=== PATIENT | female | born 1945 | race Caucasian/White ===

== ENCOUNTER 2018-02-03 15:38 | Inpatient (IN) | payer MEDICARE ==
[2018-02-03] MEDS ORDERED: Ondansetron ODT TAB* 4 MG PO ONE (16:52)
[2018-02-03 17:16] LABS: ABS Basophils 0 10^3/ul (0-0.2); ABS Eosinophils 0 10^3/ul (0-0.6); ABS Lymphocytes 0.8 10^3/ul (1.0-4.8); ABS Monocytes 0.7 10^3/ul (0-0.8); ABS Neutrophils 8.1 10^3/ul (1.5-7.7); ABS Nucleated RBC 0 10^3/ul; Eosinophil % 0.4 % (0-6); Hematocrit 31 % (35-47); Hemoglobin 9.6 g/dl (12.0-16.0); Lymphocyte % 8.6 % (25-47); Mean Corpuscular HGB Conc 31 g/dl (31-36); Mean Corpuscular Hemoglobin 25 pg (27-31); Mean Corpuscular Volume 81 fL (80-97); Mean Platelet Volume 10.1 um3 (7.4-10.4); Nucleated Red Blood Cells % 0; Platelet Count 159 10^3/ul (150-450); Red Blood Count 3.82 10^6/ul (4.00-5.40); Red Cell Distribution Width 21 % (10.5-15); White Blood Count 9.8 10^3/ul (3.5-10.8)
--- NOTE | 2018-02-03 17:32 | RAD ---
INDICATION: Short of breath none COMPARISON: None TECHNIQUE: AP seated and lateral views were obtained. FINDINGS: Bones/Soft Tissues: There are no acute bony findings. Cardiomediastinal: The cardiac silhouette and central pulmonary vessels are prominent. There is interstitial edema. There is a small amount of fluid in the minor fissures. Lungs: There are no infiltrates. Pleura: No significant pleural effusions. Other: None IMPRESSION: MILD TO MODERATE INTERSTITIAL CONGESTION.
[2018-02-03 17:34] LABS: EGFR Non-African American 71.9 (>60)
[2018-02-03] MEDS ORDERED: Nitroglycerin 2% OINT* 1 GM PAK TOPICAL ONE (17:47)
[2018-02-03] MEDS ORDERED: Nitroglycerin TAB 0.4 MG* 0.4 MG TAB SL ONE (17:47)
[2018-02-03] MEDS ORDERED: Furosemide IV* 10 MG/ML VIAL (40 MG) IV SLOW PU ONE (17:47)
--- NOTE | 2018-02-03 18:40 | ED ---
Shortness of Breath - HPI Summary HPI Summary: This is scribe Ranjit Medina documenting for attending Maykel Ventura M.D. Patient is a 72 y/o F w/ c/o SOB. Patient has liver CA and is being treated at [facility]. She states she went to an appointment there two weeks ago, stated she had been experiencing SOB recently, and was admitted for two days. She states an echocardiogram was done which revealed "abnormal findings". She states she also received two units of blood and CT to check for blood clots. Patient states she has experienced an exacerbation of SOB in the past two days. She notes she would experience SOB when doing activities like walking uphill but notes she is now experiencing SOB with any exertion to the point she " cannot do anything". She denies chest pain and cough. Patient is not on O2 at home. Vitals in room are pulse 70, O2 sat 96, and BP 151/62. Patient denies Hx of cardiac problems. Home medications and allergies are reviewed. I, Dr. Ventura, personally performed the services described in this documentation as scribed in my presence and it is both accurate and complete. - History of Current Complaint Chief Complaint: EDShortnessOfBreath Time Seen by Provider: 02/03/18 15:43 Hx Obtained From: Patient Onset/Duration: Lasting Days - exacerbation onset two days ago, Still Present Timing: Constant Current Severity: None - pain is denied on triage Aggrevating Factors: Movement Alleviating Factors: Nothing - Allergy/Home Medications Allergies/Adverse Reactions: Allergies Allergy/AdvReac Type Severity Reaction Status Date / Time No Known Allergies Allergy Verified 04/20/17 10:58 Home Medications: Home Medications Aspirin 81 mg CHEW TAB* [Aspirin Low Dose TAB*] 81 mg PO DAILY 02/03/18 [ History Confirmed 02/03/18] FLUoxetine CAP* [PROzac CAP*] 20 mg PO DAILY 02/03/18 [History Confirmed ] Gabapentin CAP(*) [Neurontin 300 CAP(*)] 300 mg PO BID 02/03/18 [History Confirmed 02/03/18] Glipizide/Metformin 5/500 2 tab PO DAILY 02/03/18 [History Confirmed 02/03/18] Ibuprofen TAB* [Advil TAB*] 600 mg PO DAILY PRN 02/03/18 [History Confirmed ] Insulin Detemir (NF) [Levemir (NF)] 25 unit SUBCUT DAILY 02/03/18 [History Confirmed 02/03/18] Levothyroxine TAB* [Synthroid TAB*] 200 mcg PO DAILY 02/03/18 [History Confirmed 02/03/18] Lisinopril 40 mg PO DAILY 02/03/18 [History Confirmed 02/03/18] Loperamide HCl [Imodium A-D] 2 mg PO DAILY PRN 02/03/18 [History Confirmed 02/03] Lovastatin(NF) [Mevacor(NF)] 40 mg PO DAILY 02/03/18 [History Confirmed 02/03/18 ] Metoprolol Tartrate TAB* [Lopressor TAB*] 25 mg PO BID 02/03/18 [History Confirmed 02/03/18] Ondansetron TAB* [Zofran 4 MG Tab*] 4 mg PO Q8HR PRN 02/03/18 [History Confirmed 02/03/18] PemBROLizumab* [Keytruda*] 25 mg IV Q21D 02/03/18 [History Confirmed 02/03/18] SORAfenib TOSYLATE [Nexavar] 400 mg PO BID 02/03/18 [History Confirmed 02/03/18] PMH/Surg Hx/FS Hx/Imm Hx Endocrine/Hematology History: Reports: Hx Diabetes - LANTUS AND GLIPIZIDE/ METFORMIN Cardiovascular History: Reports: Hx Hypertension - ON MEDICATION, Other Cardiovascular Problems/Disorders - HIGH CHOLESTEROL- ON MED Denies: Hx Pacemaker/ICD Respiratory History: Denies: Hx Asthma History: Denies: Hx Renal Disease Musculoskeletal History: Denies: Hx Osteoporosis Sensory History: Reports: Hx Cataracts, Hx Contacts or Glasses - GLASSES, Hx Hearing Aid Opthamlomology History: Reports: Hx Cataracts, Hx Contacts or Glasses - GLASSES Psychiatric History: Reports: Hx Depression - ON MED Denies: Hx Panic Disorder - Cancer History Hx Chemotherapy: No Hx Radiation Therapy: No - Surgical History Surgery Procedure, Year, and Place: GALL BLADDER REMOVAL- [facility] [place]. THYROIDECTOMY- [facility] [place]- 1999. [id number] Hx Anesthesia Reactions: No Infectious Disease History: No Infectious Disease History: Denies: Traveled Outside the [place] in Last 30 Days - Social History Alcohol Use: None Substance Use Type: Reports: None Smoking Status (MU): Former Smoker Type: Cigarettes Amount Used/How Often: 2 PPD X 35 YEARS Review of Systems Negative: Fever, Chills Negative: Erythema Negative: Sore Throat Negative: Chest Pain Positive: Shortness Of Breath. Negative: Cough Negative: Abdominal Pain, Vomiting, Nausea Negative: dysuria, hematuria Negative: Myalgia, Edema Negative: Rash Neurological: Other - NEGATIVE: dizziness All Other Systems Reviewed And Are Negative: Yes Physical Exam - Summary Physical Exam Summary: Constitutional: Well-developed, Well-nourished, Alert. (-) Distressed Skin: Warm, Dry HENT: Normocephalic; Atraumatic Eyes: Conjunctiva normal Neck: Musculoskeletal ROM normal neck. (-) JVD, (-) Stridor, (-) Tracheal deviation Cardio: Rhythm regular, rate normal, Heart sounds normal; Intact distal pulses; The pedal pulses are 2+ and symmetric. Radial pulses are 2+ and symmetric. (-) Murmur Pulmonary/Chest wall: Effort normal. (-) Respiratory distress, (-) Wheezes, (+) Rales in left lower lung field Abd: Soft, (-) epigastric tenderness, (-) Distension, (-) Guarding, (-) Rebound Musculoskeletal: (-) Edema Lymph: (-) Cervical adenopathy Neuro: Alert, Oriented x3 Psych: Mood and affect Normal Triage Information Reviewed: Yes Vital Signs On Initial Exam: Initial Vitals Temp Pulse Resp BP Pulse Ox 98.9 F 74 26 154/115 85 02/03/18 15:39 02/03/18 15:39 02/03/18 15:39 02/03/18 15:39 02/03/18 15:39 Vital Signs Reviewed: Yes Diagnostics - Vital Signs Vital Signs Temp Pulse Resp BP Pulse Ox 02/03/18 16:00 71 17 95 02/03/18 15:52 71 31 166/63 96 02/03/18 15:39 98.9 F 74 26 154/115 85 - Laboratory Lab Results: Lab Results 02/03/18 02/03/18 02/03/18 Range/Units 17:02 17:02 17:02 WBC 9.8 (3.5-10.8) 10^3/ul RBC 3.82 L (4.00-5.40) 10^6/ul Hgb 9.6 L (12.0-16.0) g/dl Hct 31 L (35-47) % MCV 81 (80-97) fL MCH 25 L (27-31) pg MCHC 31 (31-36) g/dl RDW 21 H (10.5-15) % Plt Count 159 (150-450) 10^3/ul MPV 10.1 (7.4-10.4) um3 Neut % (Auto) 83.1 H (38-83) % Lymph % (Auto) 8.6 L (25-47) % [place] % (Auto) 7.6 H (0-7) % Eos % (Auto) 0.4 (0-6) % Baso % (Auto) 0.3 (0-2) % Absolute Neuts (auto) 8.1 H (1.5-7.7) 10^3/ul Absolute Lymphs (auto) 0.8 L (1.0-4.8) 10^3/ul Absolute Monos (auto) 0.7 (0-0.8) 10^3/ul Absolute Eos (auto) 0 (0-0.6) 10^3/ul Absolute Basos (auto) 0 (0-0.2) 10^3/ul Absolute Nucleated RBC 0 10^3/ul Nucleated RBC % 0 Sodium 134 L (135-145) mmol/L Potassium 5.5 H (3.5-5.0) mmol/L Chloride 103 (101-111) mmol/L Carbon Dioxide 23 (22-32) mmol/L Anion Gap 8 (2-11) mmol/L BUN 15 (6-24) mg/dL Creatinine 0.79 (0.51-0.95) mg/dL Est GFR ( Amer) 87.1 (>60) Est GFR (Non-Af Amer) 71.9 (>60) BUN/Creatinine Ratio 19.0 (8-20) Glucose 155 H (70-100) mg/dL Lactic Acid 3.2 H* (0.5-2.0) mmol/L Calcium 9.2 (8.6-10.3) mg/dL Total Bilirubin 0.80 (0.2-1.0) mg/dL AST 33 (13-39) U/L ALT 14 (7-52) U/L Alkaline Phosphatase 82 (34-104) U/L Troponin I 0.04 H* (<0.04) ng/mL B-Natriuretic Peptide ( - 100) pg/mL Total Protein 7.8 (6.4-8.9) g/dL Albumin 3.6 (3.2-5.2) g/dL Globulin 4.2 H (2-4) g/dL Albumin/Globulin Ratio 0.9 L (1-3) / Range/Units 17:02 WBC (3.5-10.8) 10^3/ul RBC (4.00-5.40) 10^6/ul Hgb (12.0-16.0) g/dl Hct (35-47) % MCV (80-97) fL MCH (27-31) pg MCHC (31-36) g/dl RDW (10.5-15) % Plt Count (150-450) 10^3/ul MPV (7.4-10.4) um3 Neut % (Auto) (38-83) % Lymph % (Auto) (25-47) % [place] % (Auto) (0-7) % Eos % (Auto) (0-6) % Baso % (Auto) (0-2) % Absolute Neuts (auto) (1.5-7.7) 10^3/ul Absolute Lymphs (auto) (1.0-4.8) 10^3/ul Absolute Monos (auto) (0-0.8) 10^3/ul Absolute Eos (auto) (0-0.6) 10^3/ul Absolute Basos (auto) (0-0.2) 10^3/ul Absolute Nucleated RBC 10^3/ul Nucleated RBC % Sodium (135-145) mmol/L Potassium (3.5-5.0) mmol/L Chloride (101-111) mmol/L Carbon Dioxide (22-32) mmol/L Anion Gap (2-11) mmol/L BUN (6-24) mg/dL Creatinine (0.51-0.95) mg/dL Est GFR ( Amer) (>60) Est GFR (Non-Af Amer) (>60) BUN/Creatinine Ratio (8-20) Glucose (70-100) mg/dL Lactic Acid (0.5-2.0) mmol/L Calcium (8.6-10.3) mg/dL Total Bilirubin (0.2-1.0) mg/dL AST (13-39) U/L ALT (7-52) U/L Alkaline Phosphatase (34-104) U/L Troponin I (<0.04) ng/mL B-Natriuretic Peptide 993 H ( - 100) pg/mL Total Protein (6.4-8.9) g/dL Albumin (3.2-5.2) g/dL Globulin (2-4) g/dL Albumin/Globulin Ratio (1-3) Result Diagrams: 02/03/18 17:02 02/03/18 17:02 Lab Statement: Any lab studies that have been ordered have been reviewed, and results considered in the medical decision making process. - Radiology CXR Xray Interpretation: Positive (See Comments) Radiology Interpretation Completed By: Radiologist - Mild to moderate interstitial congestion. This report was reviewed by ED physician. - EKG 1635 Cardiac Rate: NL - rate of 70 BPM EKG Rhythm: Sinus Rhythm EKG Interpretation: nonspecific IVCD with LAD Re-Evaluation - Re-Evaluation First Eval Re-Evaluation Time: 17:51 Comment: Discussed decision to admit as well as results and labs. Patient is agreeable with admission to [facility] [place] Course/Dx - Course Assessment/Plan: Patient is a 72 y/o F w/ c/o SOB. Patient has liver CA and is being treated at [facility]. She states she went to an appointment there two weeks ago, stated she had been experiencing SOB recently, and was admitted for two days. She states an echocardiogram was done which revealed "abnormal findings". She states she also received two units of blood and CT to check for blood clots. Patient states she has experienced an exacerbation of SOB in the past two days. She notes she would experience SOB when doing activities like walking uphill but notes she is now experiencing SOB with any exertion to the point she "cannot do anything". She denies chest pain and cough. Patient is not on O2 at home. Physical exam showed rales in left lower lung field. During ED course, patient was given Zofran 4 mg PO ED ONCE, Nitroglycerin 2% oint 1 inch TOPICAL ED ONCE ONE, Nitroglycerin 0.4 mg SL .EVERY 5 MIN PRN ONE, Lasix 40 mg IV SLOW PU ED ONCE ONE. Labs showed .04 trop, lactic acid was 3.2, BNP 993. Sodium 134, potassium 5.5, RBC 3.82, Hgb 9.6, Hct 31, MCH 25, RDW 21, Neut % 83.1. CXR showed mild to moderate interstitial congestion. EKG impressions above. Patient's case was discussed with Dr. Alonso; she accepts patient for admission to [facility] [place]. Chou, PCP was also consulted; she asks hospitalist accept patient for admission. Discussed plan with patient, she is agreeable with further workup. Patient diagnosed with CHF exacerbation and hypoxia. - Diagnoses Provider Diagnoses: CHF exacerbation, Hypoxia - Physician Notifications Discussed Care of Patient With: Anum Alonso Time Discussed With Above Provider: 17:36 Instructed by Provider To: Other - Discussed patient's case with Dr. Alonso at 17: 36. Dr. Alonso accepts patient for admission to [facility] [place]. 18:09 -- Dr. Chou was consulted as she was patient's PCP. She asks that hospitalist accept patient for admission. - Critical Care Time Critical Care Time: 30-74 min - 35 minutes Discharge - Sign-Out/Discharge Documenting (check all that apply): Patient Departure - admit - Discharge Plan Condition: Good Disposition: ADMITTED TO [facility] Referrals: Sherley Chou MD [Primary Care Provider] -
[2018-02-03] MEDS ORDERED: Loperamide CAP* 2 MG PO PRN (20:11)
[2018-02-03] MEDS ORDERED: Ondansetron TAB* 4 MG PO PRN (20:11)
[2018-02-03] MEDS ORDERED: Furosemide IV* 10 MG/ML VIAL (40 MG) IV ONE (20:16)
[2018-02-03] MEDS ORDERED: Metoprolol Tartrate TAB* 25 MG PO SCH (21:00)
[2018-02-03] MEDS: Gemfibrozil TAB* 600 MG PO SCH (22:49)
[2018-02-03] MEDS: Gabapentin CAP(*) 300 MG PO SCH (22:49)
--- NOTE | 2018-02-03 23:12 | HP ---
CC: Dr. Chou; Dr. You* ADMISSION HISTORY AND PHYSICAL: DATE OF ADMISSION: 02/03/18 PRIMARY CARE PROVIDER: Dr. Sherley Chou. ADMITTING PHYSICIAN: Dr. Shala You* (dictated by Joce Catalan NP ). ATTENDING PHYSICIAN: Dr. Chou. CHIEF COMPLAINT: Shortness of breath x24 hours. HISTORY OF PRESENT ILLNESS: This is a very pleasant 72-year-old female patient , who has a history significant for hepatocellular carcinoma. She is currently under treatment at [facility] in [place]. The patient states she was recently admitted there from 01/19/18 to 01/21/18. At that time, the patient was presenting for her normally scheduled infusion treatment of Keytruda ; however, she was noted to be short of breath. The patient was admitted for a workup for her shortness of breath and was found to be in acute heart failure. The patient was diuresed and had an echocardiogram and some other diagnostics and was released by Cardiology on 01/21/18. The patient was home and in her usual state of health and gradually over the last 48 hours began to become short of breath again. The patient states she has an inability to lie flat. Her exertional dyspnea is preventing her from walking more than 20 feet without having to stop and sit down. Also, stating that she was not having any chest pains or pressure, but she does feel a general fatigue, anorexia, and general heaviness. 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 Also, of note, during her admission from 01/19/18 to 01/21/18, the patient was found to be anemic. Her hemoglobin was less than 7, she did receive a blood transfusion also at that time. Again, past medical history is as above. PAST SURGICAL HISTORY: Cholecystectomy in 1999, thyroidectomy in 1999, C- section in 1987. MEDICATIONS: At home, include: 1. Aspirin 81 mg daily. 2. Fluoxetine 20 mg daily. 3. Gabapentin 300 mg p.o. b.i.d. 4. Glipizide/metformin 5/500 two tabs p.o. daily. 5. Ibuprofen 600 mg as needed. 6. Levemir 25 units subcu daily. 7. Levothyroxine 200 mcg daily. 8. Lisinopril 40 mg daily. 9. Loperamide 2 mg p.o. daily. 10. Lovastatin 40 mg daily. 11. Metoprolol tartrate 25 mg 2 times a day. 12. Zofran 4 mg q.8 hours as needed. 13. Keytruda 25 mg IV q.3 weeks. 14. Nexavar 400 mg p.o. b.i.d. Please note, her Keytruda and Nexavar are currently on hold since her admission in December. ALLERGIES: She has no known drug allergies. SOCIAL HISTORY: The patient does not use alcohol. She was a former smoker, 2 packs per day x35 years. Denies any illicit drug use. Her daughter, who is at the bedside, is her healthcare proxy. CURRENT REVIEW OF SYSTEMS: A 10-point review of systems is negative except as noted in the HPI above. PHYSICAL EXAMINATION GENERAL: The patient is alert, pale, otherwise well appearing. VITAL SIGNS: Currently blood pressure 157/66, heart rate 72, respiratory rate 16, O2 saturation 98% on 2 L nasal cannula. HEENT: The patient is atraumatic, normocephalic. She has PERRLA with nonicteric sclerae. Oral mucosa is moist. NECK: Supple, nontender. No JVD noted. No carotid bruit auscultated. LUNGS: Clear at the apices bilaterally. She has bibasilar crackles. No rhonchi noted. No wheezing noted. CARDIOVASCULAR: S1, S2 present. No murmurs, gallops, or rubs noted. Rate and rhythm are regular. ABDOMEN: Soft, nontender, nondistended. Positive bowel sounds in all 4 quadrants. No organomegaly noted. : Deferred. MUSCULOSKELETAL: There is no clubbing and no cyanosis. She has no pedal edema. She has +2 distal pulses palpable. She has a steady gait. Full range of motion. NEUROLOGIC: She is grossly intact with no focalities. PSYCHIATRIC: She is cooperative and appropriate. DIAGNOSTIC STUDIES/LAB DATA: WBCs 9.8, RBCs 3.82, hemoglobin 9.6, hematocrit 31, platelets 159. Sodium 134, potassium 5.5, chloride 103, CO2 23, BUN 15, creatinine 0.79, GFR 71.9, glucose 155, lactic acid 3.2, calcium 9.2. Bilirubin 0.80, AST 33, ALT 14, alk phos 82. Troponin is 0.04. BNP is 993. Protein 7.8. Albumin 3.6, globulin 4.2. Radiology report: Chest x-ray dated today reveals [id number] interstitial congestion with no significant pleural effusions noted. IMPRESSION AND PLAN: This is a 72-year-old female with a complex medical history, currently under treatment for hepatocellular carcinoma, who apparently has had a bout with anemia and heart failure earlier this month, who now presents with acute shortness of breath and with just likely a second bout of congestive heart failure. 1. Acute heart failure, unspecified type. 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 The patient states she has no formal history of coronary artery disease and has not had angiography performed. I am trying to obtain her records from her admission at [place] and obtain copies of her echocardiogram at that time. We will repeat her echo in the morning and hopefully have a comparison to see if she has any additional dysfunction. In the meantime, she has gotten nitro paste, 2 L of oxygen by a nasal cannula. She has received 40 mg of Lasix IV. I have given her another 40 mg now and we will continue with 40 mg daily. Monitor for euvolemia. Strict I's and O's as well as daily weights. Recommend a low-salt diet. 2. For her diabetes mellitus, we will continue her on her oral meds with Accu- Cheks a.c. 2 times a day. At this point, her blood sugar appears controlled in the ED. If it begins to elevate, we can consider lispro sliding scale, but for now her last sugar was 155 and appears to be stable. We will continue her oral medications as well as her long-acting insulin at 25 units subcu daily. 3. For her hypertension, we will continue her on her beta hermes and also her lisinopril. 4. For her hypothyroidism, we will continue levothyroxine. 5. For her hyperlipidemia, we will continue her on Lopid 600 mg 2 times a day. She takes Zofran as needed, this will be continued as well as gabapentin 2 times daily. 6. For her hepatocellular carcinoma, her chemotherapy agents are currently on hold. When she was discharged from [place], she was instructed to follow up with Cardiology. The determinations will need to be made whether the patient will be able to continue with her treatment if her cardiac status is less than optimal to be able to withstand, continuing with biologic and chemotherapeutic agents. For now, the patient's BNP is elevated. We will repeat her BNP in the morning, repeat her lytes, repeat the troponin. She has a troponin of 0.04; however, I feel this may be some demand ischemia. She is not complaining of any chest pain or any anginal equivalents. She can have a low-sodium diet as stated earlier. 7. For DVT prophylaxis, we will place her on heparin subcu q.8 hours. She can ambulate as tolerated. 8. Disposition. Admit to inpatient under Dr. Chou's service. We have consulted Cardiology. I discussed this case with Dr. Chata Lovett; somebody from cardiology group will see the patient in the morning and evaluate the rest of the patient's workup. We appreciate any recommendations from Cardiology at that time. The rest of the patient's course will be determined by further diagnostics, laboratories, and other input from other providers as warranted during this admission. We will continue to monitor the patient closely. Of note, I discussed this plan of care with Dr. Shala You, who is the admitting physician for today and she is in agreement with the plan. JOCE CATALAN NP [id number]/[facility] #: [id number] TASH
[2018-02-04] MEDS: Levothyroxine TAB* 100 MCG TAB PO SCH (06:10)
[2018-02-04 06:36] LABS: ABS Basophils 0.1 10^3/ul (0-0.2); ABS Eosinophils 0.1 10^3/ul (0-0.6); ABS Lymphocytes 1.5 10^3/ul (1.0-4.8); ABS Nucleated RBC 0 10^3/ul; Eosinophil % 1.3 % (0-6); Hematocrit 28 % (35-47); Hemoglobin 8.6 g/dl (12.0-16.0); Lymphocyte % 22.9 % (25-47); Mean Corpuscular HGB Conc 31 g/dl (31-36); Mean Corpuscular Hemoglobin 25 pg (27-31); Mean Corpuscular Volume 79 fL (80-97); Mean Platelet Volume 9.6 um3 (7.4-10.4); Nucleated Red Blood Cells % 0.1; Platelet Count 144 10^3/ul (150-450); Red Blood Count 3.47 10^6/ul (4.00-5.40); Red Cell Distribution Width 21 % (10.5-15); White Blood Count 6.6 10^3/ul (3.5-10.8)
[2018-02-04 06:55] LABS: EGFR Non-African American 57.5 (>60)
[2018-02-04] MEDS ORDERED: Nitroglycerin 2% OINT* 1 GM PAK TOPICAL SCH (08:00)
[2018-02-04] MEDS: Atorvastatin* 10 MG TAB PO SCH (08:03)
[2018-02-04] MEDS: metFORMIN* 500 MG TAB PO SCH ×2 (08:04→17:50)
[2018-02-04] MEDS: Lisinopril TAB* 10 MG PO SCH (08:04)
[2018-02-04] MEDS: FLUoxetine CAP* 20 MG PO SCH (08:05)
[2018-02-04] MEDS: Aspirin 81 mg CHEW TAB* 81 MG TAB.CHEW PO SCH (08:05)
[2018-02-04] MEDS: Gemfibrozil TAB* 600 MG PO SCH ×2 (08:06→21:58)
[2018-02-04] MEDS: glipiZIDE TAB* 5 MG PO SCH ×2 (08:06→17:50)
[2018-02-04] MEDS: Gabapentin CAP(*) 300 MG PO SCH ×2 (08:06→21:58)
[2018-02-04] MEDS: Furosemide IV* 10 MG/ML VIAL (40 MG) IV SLOW PU SCH (08:09)
[2018-02-04] MEDS: Insulin GLARGINE(*) 1 UNITS UNIT SUBCUT SCH (08:09)
[2018-02-04] MEDS: Metoprolol Tartrate TAB* 25 MG PO SCH ×2 (08:10→21:58)
[2018-02-04] MEDS ORDERED: Perflutren Lipid Microsphere* 3 ML VIAL ONE (08:37)
[2018-02-04] MEDS ORDERED: GLIPIZIDE PO SCH (09:00)
[2018-02-04] MEDS ORDERED: METFORMIN PO SCH (09:00)
--- NOTE | 2018-02-04 09:48 | ECHO ---
Patient: LUCERO CALDWELL [facility] Rec#: [id number] : 1945 Date: 02/04/2018 Age: 72y Height: 165.1 cm / 65.0 in Weight: 97.52 kg / 214.9 lbs Sex: F BSA: 2.04 Admit Date#: 02/03/2018 Referring: Alicia Dickson Reading: Demian Ballard DO Disc Pad Plate Filler: TERI Disc Pad Plate Filler: Karli Larios RDCS CC: Sherley Chou MD CC: Gideon Andre MD Transthoracic Echocardiogram Findings History: Hepatocellular cancer with chemotherapy,DM,HLD,HTN,former smoker. Technical Comments: The study is technically limited due to the patient's smoking history. Completed at 0910. Definity used to enhance images. Left Ventricle: The left ventricular chamber size is normal. Septal wall hypertrophy is observed. The estimated ejection fraction is 55-60%. There is abnormal septal motion consistent with conduction system disease. All myocardial segments thicken appropriately. The assessment of diastolic function is non-diagnostic. Left Atrium: The left atrium is mild to moderately dilated. Right Ventricle: The right ventricular chamber size and systolic function are within normal limits. Right Atrium: The right atrium is mildly dilated. Aortic Valve: The aortic valve is trileaflet. The aortic valve leaflets are mildly thickened. Mild aortic leaflet calcification is visualized. Systolic excursion of the aortic valve is normal. There is mild aortic regurgitation. There is no evidence of aortic stenosis. Mitral Valve: Severe mitral annular calcification present. The mitral valve leaflets are moderately thickened. There is mild mitral regurgitation. There is mild mitral stenosis. The mean gradient across the mitral valve is 3.87 mmHg. Tricuspid Valve: The tricuspid valve leaflets are normal. There is mild tricuspid regurgitation. There is evidence of mild pulmonary hypertension. There is no tricuspid stenosis. Pulmonic Valve: The pulmonic valve appears normal. There is a trace pulmonic regurgitation. There is no pulmonic stenosis. Pericardium: There is no significant pericardial effusion. Aorta: There is no dilatation of the ascending aorta. There is no dilatation of the aortic arch. There is no dilation of the aortic root. Pulmonary Artery: The main pulmonary artery is not well visualized. Venous: The venous system is not well visualized. Contrast: Definity was used to optimize study. A total of 4 ml used. Intravenous contrast was used to enhance endocardial border definition. Conclusions The left ventricular chamber size is normal. Moderate septal wall hypertrophy is observed. The estimated ejection fraction is 55-60%. The left atrium is mild to moderately dilated. The right ventricular chamber size and systolic function are within normal limits. Severe mitral annular calcification present. No more than mild valvular disease noted There is evidence of mild pulmonary hypertension. Definity was used to optimize study. None prior for comparison at time of interpretation Measurements Name Value Normal Range RVIDd (AP) 2D 3.4 cm (0.9 - 2.6) RVDdMajor (2D) 3.7 cm (2.2 - 4.4) RAd ISD 4CH 5.6 cm (3.4 - 4.9) RA (A4C)W 3.6 cm (2.9 - 4.6) IVSd (2D) 1.6 cm (0.6 - 1) LVPWd (2D) 1.1 cm (0.6 - 1) LVIDd (2D) 4.2 cm (3.6 - 5.4) LVIDs (2D) 2.4 cm - LV FS (2D) 42 % (25 - 45) Aortic Annulus 2.2 cm (1.4 - 2.6) Ao root diameter (2D) 3.2 cm (2.1 - 3.5) Ascending Ao 3.2 cm (2.1 - 3.4) Aortic arch 2.8 cm (1.8 - 3.4) Descending Ao 0.6 cm - LA dimension (AP) 2D 4.4 cm (2.3 - 3.8) LAd ISD 4CH 5.9 cm (2.9 - 5.3) LA ISD 4CH W 4.4 cm (2.5 - 4.5) Name Value Normal Range LA ESV SP 4CH (A/L) 68 ml - LA ESV SP 2CH (A/L) 108 ml - LA ESV BP (A/L) 86 ml - LA ESV BP (A/L) index 42.27 ml/m2 - LA ESV SP 4CH (MOD) 63 ml - LA ESV SP 2CH (MOD) 102 ml - Name Value Normal Range MV E-wave Vmax 1.7 m/sec - MV deceleration time 395 msec - MV A-wave Vmax 1.4 m/sec - MV E:A ratio 1.22 ratio - LV septal e' Vmax 0.04 m/sec - LV lateral e' Vmax 0.05 m/sec - LV E:e' septal ratio 42.5 ratio - LV E:e' lateral ratio 34 ratio - Name Value Normal Range AV Vmax 1.8 m/sec - AV VTI 39.6 cm - AV peak gradient 12.2 mmHg - AV mean gradient 5.35 mmHg - LVOT diameter 1.9 cm - LVOT Vmax 1.3 m/sec - LVOT VTI 35.2 cm - LVOT peak gradient 6.39 mmHg - LVOT mean gradient 3.39 mmHg - AR PHT 349 msec - AR peak gradient 41.26 mmHg - Name Value Normal Range MV Vmax 1.7 m/sec - MV VTI 64.1 cm - MV peak gradient 11.86 mmHg - MV mean gradient 3.87 mmHg - MV PHT 103 msec - MR Vmax 4.6 m/sec - MR VTI 147 cm - MVA (PHT) 2.1 cm2 - MVA (continuity VTI) 0.7 cm2 - Name Value Normal Range TR Vmax 2.9 m/sec - TR peak gradient 34 mmHg - RAP 8 mmHg - RVSP 42 mmHg - Name Value Normal Range PV Vmax 1 m/sec - PV peak gradient 3.8 mmHg -
--- NOTE | 2018-02-04 11:46 | CONSULT ---
Subjective Date of Service: 02/04/18 Interval History: Admission and Consult Date: 02/03/18 Provider: Dr. Sherley Chou DATE OF ADMISSION: 02/03/18 Consult Date 02/04/2018 CHIEF COMPLAINT: Shortness of breath Reason for consult: CHF. HISTORY OF PRESENT ILLNESS: Sherley Gómez is a 72-year-old woman with a history of hepatocellular carcinoma on clinical trial protocol at [facility] in [place]. She was admitted there at the end of December with dyspnea and chest discomfort. A CT PE study was negative. There was concern for some apical wall motion abnormalities and the question of whether she had CAD because of a detectable troponin and abnormal ekg. She was transfused pRBC. She was not given lasix. She is now admitted with dyspnea and orthopnea. She was found with CHF, she is again anemic. She had a detectable troponin but without rise and fall to suggest ACS. She has normal thickening of all myocardial segments and hypertrophy more prominent of the septal wall best appreciated on definity imaging. She was given IV diuretics, had a good response and has markedly improved. She is no longer dyspneic. 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 MEDICATIONS: At home, include: 1. Aspirin 81 mg daily. 2. Fluoxetine 20 mg daily. 3. Gabapentin 300 mg p.o. b.i.d. 4. Glipizide/metformin 5/500 two tabs p.o. daily. 5. Ibuprofen 600 mg as needed. 6. Levemir 25 units subcu daily. 7. Levothyroxine 200 mcg daily. 8. Lisinopril 40 mg daily. 9. Loperamide 2 mg p.o. daily. 10. Lovastatin 40 mg daily. 11. Metoprolol tartrate 25 mg 2 times a day. 12. Zofran 4 mg q.8 hours as needed. 13. Keytruda 25 mg IV q.3 weeks. 14. Nexavar 400 mg p.o. b.i.d. Please note, her Keytruda and Nexavar are currently on hold since her admission in December. ALLERGIES: She has no known drug allergies. SOCIAL HISTORY: The patient does not use alcohol. She was a former smoker, 2 packs per day x35 years. Denies any illicit drug use. Her daughter, who is at the bedside, is her healthcare proxy. Medications Active Medications: Aspirin (Aspirin 81 Mg Chew Tab*) 81 mg PO DAILY [facility] Last Admin: 02/04/18 08:05 Dose: 81 mg Atorvastatin Calcium (Lipitor*) 40 mg PO DAILY [facility] Last Admin: 02/04/18 08:03 Dose: 40 mg Fluoxetine HCl (Prozac Cap*) 20 mg PO DAILY [facility] Last Admin: 02/04/18 08:05 Dose: 20 mg Furosemide (Lasix Iv*) 40 mg IV SLOW PU DAILY [facility] Last Admin: 02/04/18 08:09 Dose: 40 mg Gabapentin (Neurontin Cap(*)) 300 mg PO BID [facility] Last Admin: 02/04/18 08:06 Dose: 300 mg Gemfibrozil (Lopid Tab*) 600 mg PO BID [facility] Last Admin: 02/04/18 08:06 Dose: 600 mg Glipizide (Glucotrol Tab*) 5 mg PO BID WITH MEALS [facility] Last Admin: 02/04/18 08:06 Dose: 5 mg Insulin Glargine (Lantus(*)) 25 units SUBCUT DAILY [facility] Last Admin: 02/04/18 08:09 Dose: 25 units Levothyroxine Sodium (Synthroid Tab*) 200 mcg PO DAILY@0600 [facility] Last Admin: 02/04/18 06:10 Dose: 200 mcg Lisinopril (Prinivil Tab*) 40 mg PO DAILY [facility] Last Admin: 02/04/18 08:04 Dose: 40 mg Loperamide HCl (Imodium Cap*) 2 mg PO DAILY PRN PRN Reason: DIARRHEA Last Admin: 02/04/18 08:05 Dose: 2 mg Metformin HCl (Glucophage*) 500 mg PO BID WITH MEALS [facility] Last Admin: 02/04/18 08:04 Dose: 500 mg Metoprolol Tartrate (Lopressor Tab*) 12.5 mg PO BID [facility] Last Admin: 02/04/18 08:10 Dose: 12.5 mg Nitroglycerin (Nitroglycerin 2% Oint*) 0.5 inch TOPICAL 0800,1400 [facility]; Protocol Last Admin: 02/04/18 08:08 Dose: 0.5 inch Ondansetron HCl (Zofran Tab*) 4 mg PO Q8HR PRN PRN Reason: NAUSEA/VOMITING Home Medications: Review of Systems - Measurements Intake and Output: Intake and Output Last 24 Hours 02/02/18 02/03/18 02/04/18 02/05/18 06:59 06:59 06:59 06:59 Intake Total 8 Output Total 1825 Balance -1817 Weight 213 lb 8 oz Intake: IV Fluids 4 IVPB 4 Oral 0 Output: Urine 1825 Other: # Bowel Movements 0 - Review of Systems Constitutional Symptoms: Positive: Weakness, Fatigue, Other Negative: Weight Gain, Weight Loss, Fever Dermatology: Negative: Rash, Skin Lesions HEENT: Negative: Change in Hearing, Vertigo Eyes: Negative: Change in Vision, Double Vision Thyroid: Negative: Cold Intolerance, Heat Intolerance, Weight Loss, Weight Gain, Change in Skin/Hair, Change in Menstration Pulmonary: Positive: Respiratory Distress, Shortness of Breath, Exercise Intolerance Negative: Hemoptysis, Wheezing, COPD, Asthma, Home Oxygen Cardiology: Positive: Shortness of Breath, Orthopnea Negative: Palpitations, Swelling of Ankles, Peripheral Vascular Dis, Edema, Syncope, Claudication Gastroenterology: Negative: Nausea, Vomiting, Anorexia Genital - Urinary: Negative: Dysuria, Hematuria Musculoskeletal: Negative: Joint Pain, Joint Stiffness Endocrinology: Positive: Obesity, Diabetes Negative: Polydipsia, Polyuria Hematologic/Lymphatic: Positive: Anemia, Hx Leukemia, Hx Lymphoma, Use of Antiplatelet Drugs Negative: Use of Anticoagulant Neurology: Negative: Headaches, Migraines, Change in Speech, Change in Sphincter Function, Change in Walking Psychiatry: Negative: Unusual Anxiety, Suicidal Ideation Allergic/Immunologic: Negative: Hx Anaphylaxis, Hx Angioedema, Hx HIV, Immunocompromise Review of Systems Statement: All other review of systems negative, unless stated above. Objective Vital Signs: Temp Pulse Resp BP Pulse Ox 97.7 F 71 16 120/44 93 02/04/18 07:11 02/04/18 07:11 02/04/18 11:01 02/04/18 07:55 02/04/18 07:11 Oxygen Devices in Use Now: None Appearance: nad, chronically ill appearing Ears/Nose/Mouth/Throat: Clear Oropharnyx Neck: NL Appearance and Movements; NL JVP, Trachea Midline Respiratory: Symmetrical Chest Expansion and Respiratory Effort, Clear to Auscultation Cardiovascular: RRR, No Edema, - - no significant murmur, uncertain jvp Abdominal: NL Sounds; No Tenderness; No Distention Extremities: No Edema, No Clubbing, Cyanosis Neurological: Alert and Oriented x 3 Laboratory Results: 02/04/18 06:22 02/04/18 06:25 Total Bilirubin 0.60 mg/dL (0.2-1.0) 02/04/18 06:25 AST 28 U/L (13-39) 02/04/18 06:25 ALT 11 U/L (7-52) 02/04/18 06:25 Alkaline Phosphatase 75 U/L (34-104) 02/04/18 06:25 B-Natriuretic Peptide 855 pg/mL (-100) H 02/04/18 06:25 Total Protein 6.9 g/dL (6.4-8.9) 02/04/18 06:25 Albumin 3.2 g/dL (3.2-5.2) 02/04/18 06:25 Globulin 3.7 g/dL (2-4) 02/04/18 06:25 Albumin/Globulin Ratio 0.9 (1-3) L 02/04/18 06:25 TSH 0.86 mcIU/mL (0.34-5.60) 02/03/18 17:02 02/03/18 02/03/18 17:02 20:48 Troponin I 0.04 H* 0.05 H* Diagnostic Imaging: cxr 02/03/2018: Mild-moderate interstitial edema echo 02/04/2018: moderate septal LVH, LVEF 55-60%, mild-mod LA dilation, severe MAC, mild pHTN, no more than mild valvular disease noted EKG Data: ekg 01/24/2018: NSR, incomplete LBBB Assessment/Plan Patient admitted with acute on chronic diastolic heart failure, likely multifactorial, has responded to IV lasix. No evidence of an acute type 1 plaque disruption [place] although there is concern for underlying fixed obstructive epicardial atherosclerotic CAD - Continue aspirin, statin, beta-hermes and AceI - Continue loop diuretic, would change to low dose at discharge - Consider pharmacologic DVT prophylaxis while inpatient - Patient may benefit from a higher hemoglobin but I would not necessarily transfuse at this point - Ensure patient can ambulate without significant symptoms prior to discharge - I do not think that patient would benefit from revascularization in addition to medical therapy at this time. - If she otherwise remains stable/improves, she could be discharged 02/05 from a cardiac standpoint - She should follow up with her corn cutter and oncologist at [facility] to determine if she is able to restart chemotherapy. Thank you for allowing me to participate in the cardiovascular care of this patient. Please do not hesitate to contact me with questions or concerns
[2018-02-05] MEDS: Levothyroxine TAB* 100 MCG TAB PO SCH (05:37)
[2018-02-05 05:59] LABS: ABS Basophils 0 10^3/ul (0-0.2); ABS Eosinophils 0.1 10^3/ul (0-0.6); ABS Lymphocytes 1.2 10^3/ul (1.0-4.8); ABS Neutrophils 3.4 10^3/ul (1.5-7.7); ABS Nucleated RBC 0 10^3/ul; Eosinophil % 1.7 % (0-6); Hematocrit 26 % (35-47); Hemoglobin 8.6 g/dl (12.0-16.0); Lymphocyte % 21.6 % (25-47); Mean Corpuscular HGB Conc 33 g/dl (31-36); Mean Corpuscular Hemoglobin 26 pg (27-31); Mean Corpuscular Volume 80 fL (80-97); Mean Platelet Volume 10.2 um3 (7.4-10.4); Nucleated Red Blood Cells % 0.1; Platelet Count 127 10^3/ul (150-450); Red Blood Count 3.32 10^6/ul (4.00-5.40); Red Cell Distribution Width 21 % (10.5-15); White Blood Count 5.8 10^3/ul (3.5-10.8)
--- NOTE | 2018-02-05 08:54 | PN ---
Subjective Date of Service: 02/05/18 Interval History: f/u CHF Feels very well this AM Slept well Ambulating without symptoms No CP or dyspnea tele: SR Medications Active Medications: Aspirin (Aspirin 81 Mg Chew Tab*) 81 mg PO DAILY [facility] Last Admin: 02/04/18 08:05 Dose: 81 mg Atorvastatin Calcium (Lipitor*) 40 mg PO DAILY [facility] Last Admin: 02/04/18 08:03 Dose: 40 mg Fluoxetine HCl (Prozac Cap*) 20 mg PO DAILY [facility] Last Admin: 02/04/18 08:05 Dose: 20 mg Furosemide (Lasix Iv*) 40 mg IV SLOW PU DAILY [facility] Last Admin: 02/04/18 08:09 Dose: 40 mg Gabapentin (Neurontin Cap(*)) 300 mg PO BID [facility] Last Admin: 02/04/18 21:58 Dose: 300 mg Gemfibrozil (Lopid Tab*) 600 mg PO BID [facility] Last Admin: 02/04/18 21:58 Dose: 600 mg Glipizide (Glucotrol Tab*) 5 mg PO BID WITH MEALS [facility] Last Admin: 02/04/18 17:50 Dose: 5 mg Insulin Glargine (Lantus(*)) 25 units SUBCUT DAILY [facility] Last Admin: 02/04/18 08:09 Dose: 25 units Levothyroxine Sodium (Synthroid Tab*) 200 mcg PO DAILY@0600 [facility] Last Admin: 02/05/18 05:37 Dose: 200 mcg Lisinopril (Prinivil Tab*) 40 mg PO DAILY [facility] Last Admin: 02/04/18 08:04 Dose: 40 mg Loperamide HCl (Imodium Cap*) 2 mg PO DAILY PRN PRN Reason: DIARRHEA Last Admin: 02/04/18 08:05 Dose: 2 mg Metformin HCl (Glucophage*) 500 mg PO BID WITH MEALS [facility] Last Admin: 02/04/18 17:50 Dose: 500 mg Metoprolol Tartrate (Lopressor Tab*) 12.5 mg PO BID [facility] Last Admin: 02/04/18 21:58 Dose: 12.5 mg Ondansetron HCl (Zofran Tab*) 4 mg PO Q8HR PRN PRN Reason: NAUSEA/VOMITING Objective Vital Signs: Temp Pulse Resp BP Pulse Ox 98.5 F 61 18 120/42 95 02/05/18 03:26 02/05/18 03:26 02/05/18 03:26 02/05/18 03:26 02/05/18 03:26 Oxygen Devices in Use Now: None Appearance: nad, chronically ill appearing Ears/Nose/Mouth/Throat: Clear Oropharnyx Neck: NL Appearance and Movements; NL JVP, Trachea Midline Respiratory: Symmetrical Chest Expansion and Respiratory Effort, Clear to Auscultation Cardiovascular: RRR, No Edema, - - no significant murmur, uncertain jvp Abdominal: NL Sounds; No Tenderness; No Distention Extremities: No Edema, No Clubbing, Cyanosis Neurological: Alert and Oriented x 3 Laboratory Results: 02/05/18 05:27 02/05/18 05:27 Total Bilirubin 0.50 mg/dL (0.2-1.0) 02/05/18 05:27 AST 27 U/L (13-39) 02/05/18 05:27 ALT 10 U/L (7-52) 02/05/18 05:27 Alkaline Phosphatase 68 U/L (34-104) 02/05/18 05:27 B-Natriuretic Peptide 446 pg/mL (-100) H 02/05/18 05:27 Total Protein 6.5 g/dL (6.4-8.9) 02/05/18 05:27 Albumin 2.9 g/dL (3.2-5.2) L 02/05/18 05:27 Globulin 3.6 g/dL (2-4) 02/05/18 05:27 Albumin/Globulin Ratio 0.8 (1-3) L 02/05/18 05:27 TSH 0.71 mcIU/mL (0.34-5.60) 02/05/18 05:27 02/03/18 02/03/18 17:02 20:48 Troponin I 0.04 H* 0.05 H* Diagnostic Imaging: cxr 02/03/2018: Mild-moderate interstitial edema echo 02/04/2018: moderate septal LVH, LVEF 55-60%, mild-mod LA dilation, severe MAC, mild pHTN, no more than mild valvular disease noted EKG Data: ekg 01/24/2018: NSR, incomplete LBBB Assessment/Plan Patient admitted with acute on chronic diastolic heart failure, likely multifactorial in the setting of recent pRBC transusions has responded to IV lasix. Ruled out for ACS. - Continue aspirin, statin, beta-hermes and AceI - Continue loop diuretic, would change to low dose at discharge - Patient has f/u this Thursday with the chief of cardio-oncology at [facility] , Dr. Patterson to see if ok to resume chemotherapy - Can be discharged today from a cardiac standpoint Thank you for allowing me to participate in the cardiovascular care of this patient. Please do not hesitate to contact me with questions or concerns
[2018-02-05 09:04] VITALS: BP 104/40
[2018-02-05] MEDS: Gabapentin CAP(*) 300 MG PO SCH (09:05)
[2018-02-05] MEDS: metFORMIN* 500 MG TAB PO SCH (09:06)
[2018-02-05] MEDS: Aspirin 81 mg CHEW TAB* 81 MG TAB.CHEW PO SCH (09:06)
[2018-02-05] MEDS: glipiZIDE TAB* 5 MG PO SCH (09:06)
[2018-02-05] MEDS: FLUoxetine CAP* 20 MG PO SCH (09:06)
[2018-02-05] MEDS: Atorvastatin* 10 MG TAB PO SCH (09:08)
[2018-02-05] MEDS: Lisinopril TAB* 10 MG PO SCH (09:08)
[2018-02-05] MEDS: Furosemide IV* 10 MG/ML VIAL (40 MG) IV SLOW PU SCH (09:09)
[2018-02-05] MEDS: Gemfibrozil TAB* 600 MG PO SCH (09:09)
[2018-02-05] MEDS: Insulin GLARGINE(*) 1 UNITS UNIT SUBCUT SCH (09:10)
[2018-02-05] MEDS: Metoprolol Tartrate TAB* 25 MG PO SCH (09:10)
--- NOTE | 2018-02-08 01:41 | DS ---
CC: Dr. Huffman; Dr. Patterson at [facility]. * DISCHARGE SUMMARY: DATE OF ADMISSION: 02/03/18 DATE OF DISCHARGE: 02/05/18 DISCHARGE DIAGNOSES: 1. Acute diastolic heart failure. 2. Locally advanced hepatocellular carcinoma. 3. Cirrhosis. 4. Anemia. 5. Type 2 diabetes mellitus. 6. Hypertension. 7. Hypothyroidism. 8. Depression. 9. Status post gallbladder resection. 10. History of portal vein thrombosis. HISTORY: Daniella Gómez is a 73-year-old woman admitted with shortness of breath due to diastolic heart failure. Please see the dictated admission note for details of the present illness, past medical history, family history, social and personal history, review of systems, and physical examination. DIAGNOSTIC STUDIES/LAB DATA: CBC on admission, WBC 9.8, H and H 9.6/31, MCV 81 , PLT 159,000. White count came down to 5.8, H and H at the time of discharge was 8.6/26, platelet count 127. Chemistries on admission, sodium 134, potassium 5.5, chloride 103, CO2 of 23, BUN and creatinine 15/0.79, glucose 155. Rest of the comprehensive metabolic panel was within normal limits, except for globulin elevated at 4.2. Troponins were 0.04, 0.05. TSH was 0.86. BNP started at 993, came down to 855 on 02/04/18, it was 446 on 02/05/18. Lactic acid was 3.2 on 02/03/18, was 2.7 on repeated. Imaging: Chest x-ray on 02/03/18 showed mild to moderate interstitial congestion. Cardiology reports EKG on 02/03/18 showed sinus rhythm, nonspecific interventricular conduction delay with LAD, abnormal ST-T wave changes. Transthoracic echocardiogram on 02/03/18 showed mild to moderate left atrial dilatation, estimated ejection fraction of 55% to 60%. There was abnormal septal motion consistent with conduction system disease. There was mild aortic valve leaflet thickening with mild aortic regurgitation. No evidence of aortic stenosis. There was severe mitral annular calcification with moderate thickening of the mitral valve leaflets and mild mitral regurgitation and mild mitral stenosis. The gradient across the mitral valve was 3.87 mmHg. Cardiology consultation, Dr. Demian Ballard, 02/04/18, Dr. Ballard felt that the patient had diastolic heart failure. He noted that recent CTA of the chest at [place] had been negative for pulmonary emboli. She had been anemic, then was transfused and not given Lasix. It was not felt that she had an acute coronary syndrome. She responded well to IV diuretics. He noted that her chemotherapy was on hold. He gave her the diagnosis of acute on chronic diastolic heart failure, likely multifactorial responding to IV Lasix. He felt she had no evidence of an acute type 1 plaque disruption [place], although there is concern for underlying fixed obstructive epicardial atherosclerosis. He recommended continuing aspirin, statin, beta-hermes, and Thomas inhibitor. He recommended continuing loop diuretic, recommended changing to low-dose at discharge. He did not recommend transfusion at this point. He did not think she would benefit from revascularization in addition to medical therapy at this time. He felt she could be discharged on 02/05/18 and to follow up with the well control instructor and oncologist at [facility] to determine if she is able to restart chemotherapy. He saw her in followup on 02/05/18 prior to her discharge. He discussed with her following up with the well control instructor at [facility] [facility]. I discussed with him whether she should have a stress test and he felt that if it needed to be done, it should be done at [place]. HOSPITAL COURSE: The patient was initially seen in the emergency room where she was treated with IV furosemide, nitroglycerin sublingual. She improved. She was admitted and placed on telemetry. She continued to receive daily furosemide IV 40 mg. She continued to diurese and her breathing improved. She was able to walk around the [place] without shortness of breath prior to discharge. Her blood sugars were monitored and remained reasonably well controlled. Her other medications were continued. She had no chest pain. She had no significant arrhythmias on monitoring. At the time of discharge, her vital signs were as follows: Blood pressure 104/ 40, pulse 59, respirations 20, temperature 98.1, O2 sat 92% on room air. Her weight went from 217 pounds 11.2 ounces down to 212 pounds 12.8 ounces, lost approximately 5 pounds with diuresis. She had no edema. Her lungs were clear. Her heart was regular. DIET: Low salt. She should continue her consistent carbohydrate diet. ACTIVITIES: As tolerated. At the time of discharge, her medications are to be as follows: 1. Furosemide 20 mg daily. 2. Aspirin 81 mg daily. 3. Fluoxetine 20 mg daily. 4. Gabapentin 300 mg 2 a day. 5. Gemfibrozil 600 mg 2 a day. 6. Glipizide metformin 5/500 two pills twice a day. 7. Levemir 25 units daily. 8. Lisinopril 20 mg 2 pills once a day. 9. Lovastatin 20 mg 2 pills once a day. 10. Metoprolol 25 mg one-half tablet twice a day. 11. Prilosec 20 mg once a day. 12. Vitamin D3 of 2000 units once a day. 13. Levothyroxine 200 mcg once a day. 14. Loperamide 2 mg 2 each morning. 15. Nitroglycerin 1/150 as needed for chest pain. 16. Prochlorperazine 10 mg every 6 hours as needed for nausea. FOLLOWUP: She is to follow up with Dr. Patterson and Dr. Huffman next week at [place] as planned. She should follow up with me in 5 to 7 days and with her physicians at [facility] on Thursday02/09/18. [id number]/[facility] #: [id number] MTDD
== END 2018-02-05 11:30 | disposition home or self-care (01) | DRG 292 ==
LOC: ED 15:38 → MEDTELE 20:56
PROVIDERS: ADMIT Hospitalist; ATTEND Internal Medicine Geriatric Medicine
DX: I11.0 Hypertensive heart disease with heart failure (principal); C22.0 Liver cell carcinoma; I50.33 Acute on chronic diastolic (congestive) heart failure; F32.9 Major depressive disorder, single episode, unspecified; E89.0 Postprocedural hypothyroidism; E11.36 Type 2 diabetes mellitus with diabetic cataract; R09.02 Hypoxemia; E78.5 Hyperlipidemia, unspecified; K74.60 Unspecified cirrhosis of liver; D64.9 Anemia, unspecified; I27.20 Pulmonary hypertension, unspecified; I08.0 Rheumatic disorders of both mitral and aortic valves; K75.81 Nonalcoholic steatohepatitis (NASH); I44.7 Left bundle-branch block, unspecified; Z97.4 Presence of external hearing-aid; Z90.49 Acquired absence of other specified parts of digestive tract; Z87.891 Personal history of nicotine dependence; Z92.21 Personal history of antineoplastic chemotherapy; Z86.718 Personal history of other venous thrombosis and embolism; Z79.82 Long term (current) use of aspirin; Z79.4 Long term (current) use of insulin
CPT/HCPCS: 36415; 71046; 80053; 83605; 83880; 84443; 84484; 85025; 87040; 93005; 93306; 99284; A9270-GY; C8929; J1940

== ENCOUNTER 2018-05-18 19:22 | Inpatient (IN) | payer MEDICARE ==
[2018-05-18] MEDS ORDERED: Heparin DRIP 25,000 UNITS(*) 25,000 UNITS/500 ML BAG IVPB ONE (20:38)
--- NOTE | 2018-05-18 20:44 | ED ---
HPI Chest Pain - HPI Summary HPI Summary: A 73 y/o female presents to the ED c/o chest pain. Additionally c/o SOB. Currently, the patient is feeling fine as she is feeling asymptomatic. As per triage, "Patient reports intermittent tightness and SOB over past few days. Patient seen by PCP today, per patient EKG normal and trop was elevated. Directed by PCP to come to ED". According to the patient, she was experiencing chest pain (chest tightening) and SOB starting on and lasting for about 3 days (05/13/18 - 05/15/18). She noted that she had a "good night" last night, however, her MD Dr. Chou wanted to double check. An EKG was done with Dr. Chou which came back unremarkable, however, was alerted because the patient's Troponin was out of bounds. Her MD recommended her to come to ED. The patient noted that when she sleeps horizontally, she feels the pains, however, as soon as she sits up and moves she experiences no pain. Cardiac procedure was done in [place], [place] (3 stents) recently. Patient does take baby Aspirin. No known allergies. - History of Current Complaint Chief Complaint: EDChestPainROMI Time Seen by Provider: 05/18/18 19:48 Hx Obtained From: Patient Onset/Duration: Started Days Ago, Resolved Timing: Constant Current Severity: None Pain Intensity: 0 Pain Scale Used: 0-10 Numeric Chest Pain Radiates: No Character: Tightness Aggravating Factor(s): Position Alleviating Factor(s): Position Associated Signs and Symptoms: Positive: Chest Pain, Shortness of Breath - Additional Pertinent History Primary Care Physician: [id number] - Allergy/Home Medications Allergies/Adverse Reactions: Allergies Allergy/AdvReac Type Severity Reaction Status Date / Time No Known Allergies Allergy Verified 04/20/17 10:58 PMH/Surg Hx/FS Hx/Imm Hx Endocrine/Hematology History: Reports: Hx Blood Transfusions, Hx Diabetes, Hx Thyroid Disease - total thyroidectomy Cardiovascular History: Reports: Hx Hypercholesterolemia, Hx Hypertension, Other Cardiovascular Problems/Disorders - HIGH CHOLESTEROL- ON MED Denies: Hx Pacemaker/ICD, Hx Peripheral Vascular Disease Respiratory History: Denies: Hx Asthma GI History: Reports: Other GI Disorders - Tends to diarrhea, takes imodium. History: Denies: Hx Renal Disease Musculoskeletal History: Denies: Hx Osteoporosis Sensory History: Reports: Hx Cataracts, Hx Contacts or Glasses, Hx Hearing Aid Opthamlomology History: Reports: Hx Cataracts, Hx Contacts or Glasses Neurological History: Denies: Hx Headaches Psychiatric History: Reports: Hx Depression Denies: Hx Panic Disorder - Cancer History Cancer Type, Location and Year: Liver cancer--"locally advanced hepatocellular cancer" Hx Hematologic Symptoms: Yes - anemia Hx Chemotherapy: Yes Hx Radiation Therapy: No Hx Palliative Cancer Treatment: No - Surgical History Surgery Procedure, Year, and Place: GALL BLADDER REMOVAL- [facility]- 1999. THYROIDECTOMY- [facility]- 1999. [id number] Hx Anesthesia Reactions: No Infectious Disease History: No Infectious Disease History: Denies: Traveled Outside the [place] in Last 30 Days - Family History Known Family History: Positive: Hypertension, Diabetes Negative: Cardiac Disease - Social History Alcohol Use: None Substance Use Type: Reports: None Smoking Status (MU): Former Smoker Type: Cigarettes Amount Used/How Often: 2 PPD X 35 YEARS Review of Systems Negative: Fever Positive: Chest Pain Positive: Shortness Of Breath All Other Systems Reviewed And Are Negative: Yes Physical Exam - Summary Physical Exam Summary: Appearance: Well-appearing, Well-nourished, lying in bed comfortably Skin: Warm, dry, no obvious rash Eyes: sclera anicteric, no conjunctival pallor ENT: mucous membranes moist, pharynx appears normal Neck: Supple, nontender Respiratory: Clear to auscultation, no signs of respiratory distress Cardiovascular: Normal S1, S2. No murmurs. Normal distal pulses in tibial and radial bilaterally. Abdomen: Soft, nontender, normal active bowel sounds present Musculoskeletal: Normal, Strength/ROM Intact Neurological: A&Ox3, awake and alert, mentation is normal, speech is fluent and appropriate Psychiatric: affect is normal, does not appear anxious or depressed Triage Information Reviewed: Yes Vital Signs On Initial Exam: Initial Vitals Temp Pulse Resp BP Pulse Ox 97 F 66 20 138/55 99 05/18/18 19:29 05/18/18 19:29 05/18/18 19:29 05/18/18 19:29 05/18/18 19:29 Vital Signs Reviewed: Yes Diagnostics - Vital Signs Vital Signs Temp Pulse Resp BP Pulse Ox 05/18/18 19:29 97 F 66 20 138/55 99 - Laboratory Result Diagrams: 05/18/18 21:01 05/18/18 21:01 Lab Statement: Any lab studies that have been ordered have been reviewed, and results considered in the medical decision making process. - Radiology CXR Radiology Interpretation Completed By: ED Physician - NO ACUTE DISEASE. PENDING OFFICIAL REPORT. - EKG 2051 Cardiac Rate: NL - 67 BPM EKG Rhythm: Sinus Rhythm EKG Comparison: No Significant Change Summary of EKG Findings: Negative STEMI. Chest Pain Course/Dx - Course Course Of Treatment: A 73 y/o female presents to the ED c/o chest pain. Additionally c/o SOB. Currently, the patient is feeling fine as she is feeling asymptomatic. According to the patient, she was experiencing chest pain (chest tightening) and SOB starting on and lasting for about 3 days (05/13 - 05/15/18). She noted that she had a "good night" last night, however, her MD Dr. Chou wanted to double check. An EKG was done with Dr. Chou which came back unremarkable, however, was alerted because the patient's Troponin was out of bounds. Her MD recommended her to come to ED. The patient noted that when she sleeps horizontally, she feels the pains, however, as soon as she sits up and moves she experiences no pain. Cardiac procedure was done in [place], [place] (3 stents) recently. Patient does take baby Aspirin. No known allergies. A EKG revealed a NSR of 67 BPM, negative STEMI. A secondary EKG revealed NSR of 69 BPM. A CXR revealed no acute disease. In the ED course, the patient recieved Heparin. Patient care was discussed with hospitalist, Dr. Allison, who accepts patient for admission. Patient will be admitted with a diagnosis of acute coronary syndrome. Patient is agreeable with this plan. - Diagnoses Provider Diagnoses: Acute coronary syndrome - Provider Notifications Discussed Care Of Patient With: Kamryn Allison Time Discussed With Above Provider: 21:36 Instructed by Provider To: Other - Accepts patient for admission. Discharge - Sign-Out/Discharge Documenting (check all that apply): Patient Departure - ADMIT, Sign-Out Patient - MICHELLE Signing out patient TO: Kamryn Allison Receiving patient FROM: Babatunde Zamora - Discharge Plan Condition: Stable Disposition: ADMITTED TO [facility] - Billing Disposition and Condition Condition: STABLE Disposition: Admitted to [facility] - Attestation Statements Document Initiated by Hang: Yes Documenting Scribe: Anderson Garcia Provider For Whom Hang is Documenting (Include Credential): Babatunde Zamora M.D. Scribtiago Attestation: Anderson Wellington, scribed for Babatunde Zamora M.D. on 05/19/18 at 0218. Scribe Documentation Reviewed: Yes Provider Attestation: The documentation as recorded by the Anderson duarte accurately reflects the service I personally performed and the decisions made by Babatunde mcgarry M.D. Status of Hang Document: Viewed
[2018-05-18 21:08] LABS: Hematocrit 36 % (35-47); Hemoglobin 11.9 g/dl (12.0-16.0); Mean Corpuscular HGB Conc 33 g/dl (31-36); Mean Corpuscular Hemoglobin 32 pg (27-31); Mean Corpuscular Volume 96 fL (80-97); Mean Platelet Volume 10.1 fL (7.4-10.4); Platelet Count 102 10^3/ul (150-450); Red Blood Count 3.75 10^6/ul (4.00-5.40); Red Cell Distribution Width 17 % (10.5-15); White Blood Count 6.4 10^3/ul (3.5-10.8)
[2018-05-18 21:32] LABS: EGFR Non-African American 60.2 (>60)
[2018-05-18 21:36] LABS: ABS Basophils 0 10^3/ul (0-0.2); ABS Eosinophils 0.1 10^3/ul (0-0.6); ABS Lymphocytes 1.5 10^3/ul (1.0-4.8); ABS Monocytes 0.9 10^3/ul (0-0.8); ABS Neutrophils 3.9 10^3/ul (1.5-7.7); ABS Nucleated RBC 0 10^3/ul; Eosinophil % 1.9 %; Nucleated Red Blood Cells % 0
[2018-05-18] MEDS ORDERED: Heparin VIAL(*) 5000 UNITS/ML VIAL (FIVE THOUSAND) ONE (21:59)
[2018-05-18] MEDS: Heparin VIAL(*) 5000 UNITS/ML VIAL (FIVE THOUSAND) IV PRN (22:09)
[2018-05-18] MEDS: Heparin DRIP 25,000 UNITS(*) 25,000 UNITS/500 ML BAG IVPB SCH (22:09)
[2018-05-18] MEDS ORDERED: Senna TAB PO PRN (22:52)
[2018-05-18] MEDS ORDERED: Docusate CAP* 100 MG PO PRN (22:52)
[2018-05-18] MEDS ORDERED: Al Hydrox/Mg Hydrox/Simet LIQ* 30 ML UDC PO PRN (22:52)
[2018-05-18] MEDS ORDERED: Ondansetron INJ* 2 MG/ML VIAL IV PRN (22:52)
[2018-05-18] MEDS ORDERED: Acetaminophen TAB* 325 MG PO PRN (22:52)
[2018-05-18] MEDS ORDERED: Dextrose 50% Syringe 50 ML* 25 GM/50 ML SYRINGE IV PUSH PRN (22:56)
[2018-05-19] MEDS: NS 0.9% 1000 ML* 1,000 ML IV SCH ×3 (00:49→22:49)
[2018-05-19 05:21] LABS: EGFR Non-African American 73.9 (>60)
[2018-05-19 05:39] LABS: ABS Basophils 0 10^3/ul (0-0.2); ABS Eosinophils 0.1 10^3/ul (0-0.6); ABS Lymphocytes 1.3 10^3/ul (1.0-4.8); ABS Monocytes 0.7 10^3/ul (0-0.8); ABS Neutrophils 3.3 10^3/ul (1.5-7.7); ABS Nucleated RBC 0 10^3/ul; Eosinophil % 2.2 %; Hematocrit 34 % (35-47); Hemoglobin 11.4 g/dl (12.0-16.0); Lymphocyte % 23.2 %; Mean Corpuscular HGB Conc 34 g/dl (31-36); Mean Corpuscular Hemoglobin 32 pg (27-31); Mean Corpuscular Volume 95 fL (80-97); Mean Platelet Volume 10.8 fL (7.4-10.4); Nucleated Red Blood Cells % 0; Platelet Count 90 10^3/ul (150-450); Red Cell Distribution Width 17 % (10.5-15); White Blood Count 5.4 10^3/ul (3.5-10.8)
[2018-05-19] MEDS: CMCS: Pantoprazole TAB (NF) 40 MG TAB PO SCH (05:47)
[2018-05-19] MEDS: Levothyroxine TAB* 100 MCG TAB PO SCH (05:47)
--- NOTE | 2018-05-19 08:01 | HP ---
CC: Sherley Chou MD HISTORY AND PHYSICAL: DATE OF ADMISSION: 05/18/18 TIME OF EVALUATION: 2300. PRIMARY CARE PHYSICIAN: Sherley Chou MD CHIEF COMPLAINT: Chest pain. HISTORY OF PRESENT ILLNESS: This is a 73-year-old female with a past medical history of coronary artery disease with recent placement of stents placed in [place] on 03/02/18, who is also undergoing treatment for liver cancer as well, who presents to the emergency room after getting call from her primary care physician for an elevated troponin. The patient states on 05/15/18, she began with chest pain with associated difficulty catching her breath. It seems to come on when she is lying down, better when she sits up. She went in to see her primary care physician today, 05/18/18, where they did an EKG and sent her for troponin. Her troponin was noted to be 3.4. She was called by her primary to go to the emergency room for further evaluation. The patient states she has been doing well since her stents placed in February. She has been taking her Plavix and all her medications as prescribed. She denies any fevers. No recent URI illness, no cough, no nausea, no associated diaphoresis, no lower extremity swelling, no changes in her weight. Her last episode of chest pressure was Thursday evening. No discomfort today. Otherwise, review of systems negative. In the emergency room, the patient's labs and imaging, was referred to the hospitalist service for further evaluation. PAST MEDICAL HISTORY: 1. Coronary artery disease, status post 3 stents placed at [facility] in [place], [place], on 03/02/18. 2. Hepatocellular carcinoma, currently getting infusion of Keytruda every 3 weeks at [facility], followed by Dr. Huffman. 3. Diabetes. 4. Hyperlipidemia. 5. Hypertension. 6. 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 7. Depression. 8. Hypothyroidism. MEDICATIONS: 1. Aspirin 81 mg p.o. daily. 2. Fluoxetine 20 mg p.o. daily. 3. Gabapentin 600 mg p.o. b.i.d. 4. Gemfibrozil 600 mg p.o. b.i.d. 5. Janis Root 1 cap daily. 6. Glipizide/metformin 5/500 two tabs p.o. b.i.d. 7. Levemir 25 units daily in the morning. 8. Lisinopril 40 mg daily. 9. Lovastatin 40 mg daily. 10. Metoprolol tartrate 12.5 mg p.o. b.i.d. 11. Prilosec 20 mg daily. 12. Imodium as needed. 13. Nitroglycerin sublingual as needed. 14. Prochlorperazine 10 mg every 6 hours as needed for nausea, vomiting. 15. Levothyroxine 200 mcg daily. 16. Lasix 20 mg daily. 17. Plavix 75 mg daily. ALLERGIES: No known drug allergies. FAMILY HISTORY: No history of liver cancer or early coronary artery disease. Her mother at age 92 from old age. Her father in the 50s from cirrhosis. SOCIAL HISTORY: The patent lives alone with her dog. She is independent of her ADLs. She quit smoking more than 15 years ago. She smokes 2 packs per day for 15 years. She used to be a heavy drinker, quit 20 to 25 years ago. Healthcare proxy is her daughter, Angeles Hahn, who is at the bedside. Code status, full code. REVIEW OF SYSTEMS: A 14-point of review of systems as mentioned in the HPI, otherwise negative. PHYSICAL EXAMINATION GENERAL: No acute distress, resting comfortably with her daughter at the bedside. VITAL SIGNS: Temp is 99.1, pulse rate is 69, respiratory rate 19, oxygen saturation 97%, blood pressure 127/57. HEENT: Head normocephalic. Pupils are equal and reactive. Oropharynx: Mucous membranes are moist. NECK: Supple. No adenopathy. RESPIRATORY: Clear to auscultation without rhonchi or rales. CARDIAC: Regular rate and rhythm. Distant heart sounds, soft systolic murmur heard throughout. ABDOMEN: Positive bowel sounds, soft, nontender, and nondistended. EXTREMITIES: Trace pretibial edema. +1 DP. NEUROLOGIC: Alert and oriented x3. No gross focal neurological deficits. DIAGNOSTIC STUDIES/LAB DATA: White count 6.4, hemoglobin 11.9, hematocrit 36, platelets 102. Sodium 135, potassium 4.3, chloride 100, bicarb 28, BUN 17, creatinine 0.92, glucose 63. AST is 68, ALT 27, and alk phos is 132. Troponin 4.64. Lactate is 2. Radiographic data: EKG shows normal sinus rhythm with no significant ST changes. Chest x-ray: No significant findings. No significant change. ASSESSMENT AND PLAN: This is a 73-year-old female with past medical history of known coronary artery disease, who is undergoing treatment for liver cancer at [facility] with recent stent placements as well, who presented to emergency room with 3 days of chest pain, found to have an elevated troponin. Chest pain. Assessment: The patient's findings are consistent with a non-ST elevation myocardial infarction. Her troponin did go up from earlier today; however, she has been chest pain free all day. Her symptoms are worse lying down and better when sitting up and the pain improves with sitting forward, it is possible that this is pericarditis rather than a non-ST elevation myocardial infarction. Also possibility of pericardial effusion, though will not cause chest pain, is less likely pulmonary embolism with her vitals and no shortness of breath, but she does have a malignancy. Plan: We will admit her to telemetry. She has been started on heparin drip. Dr. Wakefield was contacted by the emergency room. We will continue to trend her troponin. I will keep her n.p.o. for now. I will obtain an echocardiogram to evaluate for pericarditis versus effusion and add on inflammatory markers from the emergency room. We will continue her Plavix, her aspirin, and her cardiac medications. We will hold her Lasix, check BNP and place her on gentle IV fluids. We will obtain records from [facility] and follow up with Cardiology. CHRONIC MEDICAL PROBLEMS: As mentioned above, we will resume her home medication list as prescribed. We will hold her oral antihyperglycemic agents and place her on lispro and Lantus and check her glucose a.c. FEN. As mentioned, the patient n.p.o. after midnight for possible procedure with gentle IV fluids. DVT prophylaxis. The patient scores high risk. She is on heparin drip. Code status. Full code. PATIENT TIME: Greater than 60 minutes was spent doing the history and physical , more than half the time spent in direct patient contact. We will sign out to Dr. Chou to take over service in the morning. [id number]/[facility] #: [id number] TASH
[2018-05-19] MEDS ORDERED: Perflutren Lipid Microsphere* 3 ML VIAL ONE (08:04)
[2018-05-19] MEDS: Insulin LISPRO* 1 UNITS UNIT SUBCUT SCH ×3 (08:10→18:00)
[2018-05-19] MEDS ORDERED: Lisinopril TAB* 10 MG PO SCH (09:00)
[2018-05-19] MEDS ORDERED: Insulin GLARGINE(*) 1 UNITS UNIT SUBCUT SCH (09:00)
[2018-05-19] MEDS: Gabapentin CAP(*) 300 MG PO SCH (10:00)
[2018-05-19] MEDS: Clopidogrel TAB* 75 MG PO SCH (10:00)
[2018-05-19] MEDS: Metoprolol Tartrate TAB* 25 MG PO SCH ×2 (10:02→20:08)
[2018-05-19] MEDS: Aspirin 81 mg CHEW TAB* 81 MG TAB.CHEW PO SCH (10:02)
[2018-05-19] MEDS: FLUoxetine CAP* 20 MG PO SCH (10:03)
--- NOTE | 2018-05-19 10:38 | ECHO ---
Patient: LUCERO CALDWELL [facility] Rec#: [id number] : 1945 Date: 05/19/2018 Age: 73y Height: 165 cm / 65.0 in Weight: 93 kg / 205.0 lbs Sex: F BSA: 2 Room#: 445 Admit Date#: 05/18/2018 Type: Inpatient Referring: Kamryn Allison Reading: Chata Lovett MD Pipe Stress Engineer: Karli Akhtar RDCS,RDMS CC: Sherley Chou MD Transthoracic Echocardiogram Indication: CP BP: 97/46 HR: 72 Rhythm: NSR Findings History: CAD, PCI (02/2018), HTN, HLD, DM, liver cancer. Technical Comments: The study quality is fair. Left Ventricle: The left ventricular chamber size is mildly dilated. Mild concentric left ventricular hypertrophy is observed. There is a focal wall motion abnormality present.[place] appears severly hypokinetic to akinetic, base moves well. The estimated ejection fraction is 40-45%. Abnormal left ventricular diastolic function is observed. Left Atrium: The left atrium is moderately dilated. Right Ventricle: The right ventricular chamber size and systolic function are within normal limits. The right ventricle wall thickness is mildly increased. Right Atrium: The right atrium is slightly dilated. Aortic Valve: The aortic valve is trileaflet. The aortic valve leaflets are mildly thickened. Systolic excursion of the aortic valve is normal. There is aortic annular calcification. There is mild aortic regurgitation. There is no evidence of aortic stenosis. Mitral Valve: Severe mitral annular calcification present. The mitral valve leaflets are mildly thickened. There is mild mitral regurgitation. several small jets. There is mild mitral stenosis. The mean gradient across the mitral valve is 4 mmHg. The mitral valve area, by pressure half time, is calculated at 2.4 cm2. Tricuspid Valve: The tricuspid valve leaflets are normal. There is mild tricuspid regurgitation. The right ventricular systolic pressure is estimated at 42 mmHg. There is evidence of mild pulmonary hypertension. Pulmonic Valve: The pulmonic valve appears normal. There is a trace pulmonic regurgitation. Pericardium: There is no significant pericardial effusion. Aorta: The aortic root appears normal. There is no dilatation of the aortic arch. Pulmonary Artery: The main pulmonary artery appears normal. Venous: The inferior vena cava is dilated. There is less than 50% respiratory change in the inferior vena cava dimension. Contrast: Definity was used to optimize study. A total of 2 ml was used. Conclusions Mild concentric left ventricular hypertrophy is observed. .[place] appears severly hypokinetic to akinetic, base moves well. The estimated ejection fraction is 40%. Abnormal left ventricular diastolic function is observed. The right ventricle wall thickness is mildly increased and systolic function within normal limits. The aortic valve is trileaflet, leaflets are mildly thickened with mild aortic regurgitation. Severe mitral annular calcification present. There is mild mitral regurgitation, several small jets. There is mild mitral stenosis: - mean gradient across the mitral valve is 4 mmHg. - mitral valve area, by pressure half time, is calculated at 2.4 cm2. There is mild tricuspid regurgitation. There is evidence of mild pulmonary hypertension estimated at 42 mmHg. Compared with prior echo of 02/04/18, apical wall motion abnormality is new and EF has decreased from 55-60%, PA pressure stable. Measurements Name Value Normal Range RVIDd (AP) 2D 3.3 cm (0.9 - 2.6) RVDdMajor (2D) 3.4 cm (2.2 - 4.4) RAd ISD 4CH 5 cm (3.4 - 4.9) RA (A4C)W 3.2 cm (2.9 - 4.6) IVSd (2D) 1.3 cm (0.6 - 1) LVPWd (2D) 1.3 cm (0.6 - 1) LVIDd (2D) 5.5 cm (3.6 - 5.4) LVIDs (2D) 3.8 cm - LV FS (2D) 30 % (25 - 45) Aortic Annulus 2 cm (1.4 - 2.6) Ao root diameter (2D) 3.1 cm (2.1 - 3.5) Ascending Ao 2.8 cm (2.1 - 3.4) Aortic arch 3 cm (1.8 - 3.4) LA dimension (AP) 2D 3.9 cm (2.3 - 3.8) LAd ISD 4CH 6.3 cm (2.9 - 5.3) LA ISD 4CH W 5 cm (2.5 - 4.5) Name Value Normal Range LA ESV BP (A/L) index 46 ml/m2 - Name Value Normal Range MV E-wave Vmax 1.5 m/sec - MV deceleration time 222 msec - MV A-wave Vmax 1.2 m/sec - MV E:A ratio 1.2 ratio - P. vein S-wave Vmax 0.5 m/sec - P. vein D-wave Vmax 0.5 m/sec - P. vein S:D Vmax ratio 1 ratio - P. vein A-wave duration 140 msec - LV septal e' Vmax 0.04 m/sec - LV lateral e' Vmax 0.05 m/sec - LV E:e' septal ratio 35 ratio - LV E:e' lateral ratio 29 ratio - Name Value Normal Range AV Vmax 1.4 m/sec - AV VTI 36 cm - AV peak gradient 8 mmHg - AV mean gradient 5 mmHg - LVOT diameter 2 cm - LVOT Vmax 0.9 m/sec - LVOT VTI 26 cm - LVOT peak gradient 3.2 mmHg - LVOT mean gradient 2 mmHg - EMELIA (continuity Vmax) 2.1 cm2 - EMELIA (continuity VTI) 2.2 cm2 - AR PHT 352 msec - JAIRO Vmax 0.6 m/sec - Name Value Normal Range MV Vmax 1.5 m/sec - MV VTI 50 cm - MV peak gradient 9 mmHg - MV mean gradient 4 mmHg - MV PHT 92 msec - MVA (PHT) 2.4 cm2 - MVA (continuity VTI) 1.6 cm2 - Name Value Normal Range TR Vmax 2.9 m/sec - TR peak gradient 34 mmHg - RAP 8 mmHg - RVSP 42 mmHg - IVC diameter 2.7 cm - Name Value Normal Range PV Vmax 0.7 m/sec - PV peak gradient 2 mmHg -
[2018-05-19] MEDS ORDERED: Sucralfate TAB* 1 GM PO ONE (13:02)
--- NOTE | 2018-05-19 13:14 | PN ---
Cardiology Progress Note Date of Service: 05/19/18 - CC: chest pain and SOB Pt with orthopnea, CP that started 5 days ago, CAD and bare metal stents including LAD. ESR/CRP elevated. Trops elevated, peak on admission. [place] out on echo. BP's low. A/P CP and trops differential includes: -LAD stent occlusion -CHF and 2ary elevated trops and BNP -Possible inflammatory process -GERD with above possible as well. Pt felt pills I ordered earlier helped (colchicine and Sucralfate), CP free now , napped in afternoon. Plan: -CAD and possible stent occlusion: coordinate care with regular cardiology team in [place]. -Continue Heparin -Option of NTG patch HS prn. Poss. CHF+ ischemic CM: Decrease lisinopril to 20 mg/day Add Aldactone 25 mg/day Continue BB.
[2018-05-19] MEDS: Colchicine* 0.6 MG TAB PO SCH (15:55)
[2018-05-19] MEDS: Atorvastatin* 10 MG TAB PO SCH (17:18)
[2018-05-19] MEDS: Heparin VIAL(*) 5000 UNITS/ML VIAL (FIVE THOUSAND) IV PRN (18:54)
--- NOTE | 2018-05-19 21:47 | CONS ---
CONSULTATION REPORT: DATE OF CONSULT: 05/19/18 PROVIDER: Addie Loza NP (dictating for Dr. Chata Lovett, Cardiology) PRIMARY CONSTRUCTION TECHNICIAN: Dr. Starkey at [facility]. REASON FOR CONSULT: NSTEMI, status post bare-metal stent to mid LAD, ostial RCA , and distal RCA at [facility] on 03/03/18. CHIEF COMPLAINT: Shortness of breath, chest pain. HISTORY OF PRESENT ILLNESS: This is a pleasant 73-year-old female patient with a known history of hepatocellular carcinoma in a clinical trial at [facility] in [place], [place]. She is on a trial chemotherapy agent ( Keytruda). She also has a notable history of coronary artery disease as mentioned above, status post bare-metal stenting to RCA and mid LAD; newly diagnosed systolic heart failure; portal hypertension; diabetes; hyperlipidemia ; hypertension; thrombocytopenia; anemia. The patient presented to [facility] at the discretion of her primary care provider. According to the patient, this weekend, she started to develop shortness of breath and chest pain described as squeezing like in nature when she was lying down. Symptoms would improve with position change, not related to exertion. She called her primary care provider who apparently ordered cardiac enzymes which were elevated. Subsequently, she was directed to the emergency department. While being evaluated in the emergency department, basic blood work was obtained. Troponin was 4.64, she was admitted for NSTEMI. She underwent echocardiogram on 05/18/18 which revealed an LVEF of 40% to 45% with focal wall motion abnormality involving the apex, which was severely hypokinetic to akinetic. In January, her EF was 55% to 60%. Given NSTEMI and new wall motion abnormality with reduction in LV, we were asked to see the patient in consultation. Please note that EKG revealed lateral ST-segment depression, but there was no evidence of ST-segment elevation to suggest in- stent thrombosis given she underwent percutaneous coronary intervention in February. She states that she has been tolerating dual-antiplatelet therapy with aspirin and Plavix without any bleeding complications. While evaluating the patient today, she was stating that she was still experiencing chest pain, described as an ache, tender to the touch, not related to inspiration or movement. She denies dizziness, syncope, palpitation, sensation of heart racing , edema, orthopnea, abdominal distention, recent illness or infection. She does state that symptomatology is consistent with symptoms that led to her prior intervention. PAST MEDICAL HISTORY: 1. Advanced hepatocellular carcinoma. 2. Newly diagnosed systolic heart failure. 3. Coronary artery disease. 4. Portal hypertension. 5. DEJESUS. 6. Thrombocytopenia. 7. Diabetes. 8. Hypertension. 9. Hyperlipidemia. PAST SURGICAL HISTORY: 1. . 2. Tonsillectomy. 3. Cholecystectomy. 4. Liver biopsy. 5. Bare-metal stent placement to mid LAD, ostial RCA, and distal RCA in February of 2018. HOME MEDICATIONS: 1. Aspirin 81 mg a day. 2. Plavix 75 mg daily. 3. Lipitor 10 mg a day. 4. Insulin as directed. 5. Lopressor 12.5 mg p.o. b.i.d. 6. Lisinopril 40 mg a day. 7. Gabapentin 600 mg as directed. 8. Fluoxetine 20 mg a day. 9. Protonix 40 mg as directed. 10. Keytruda as directed. ALLERGIES: No known drug allergies. FAMILY HISTORY: Noncontributory. SOCIAL HISTORY: The patient currently denies alcohol abuse. She was a former smoker. She smoked 2 packs per day for 35 years. She denies illicit drug use. Her daughter is her healthcare proxy. REVIEW OF SYSTEMS: All systems have been reviewed and otherwise negative except as mentioned in the HPI. PHYSICAL EXAM: Temperature 98.1, pulse 71, respirations 18, oxygenation 100% on room air, blood pressure 96/34. General: The patient is alert and oriented x3, sitting at the edge of bed, cooperative with exam. Appears well-nourished, in no apparent distress. HEENT: Head is atraumatic, normocephalic. Oral mucosa is moist. Tongue is midline. Neck: Supple. No JVD. No carotid bruit. No thyromegaly. Cardiac: Normal S1, S2. Regular rate and rhythm. No murmur, rub, or gallop noted. Lungs: Auscultated posteriorly. No evidence of adventitious breath sounds. Respirations are unlabored at rate of 18. /GI: Abdomen is distended, nontender. Normoactive bowel sounds x4. Extremities: No pedal edema, no clubbing, no cyanosis. Peripheral Vascular: 2+ radial and dorsalis pedis pulse palpated bilaterally and symmetrically. Skin: Intact. No evidence of jaundice, rashes, or ecchymosis. DIAGNOSTIC STUDIES/LAB DATA: Blood work obtained today, 05/19/18: Sodium 134, potassium 4.1, chloride 100, carbon dioxide 28, BUN 16, creatinine 0.77, glucose 68. Troponin 3.32. Triglycerides 82, cholesterol 108, LDL 45, HDL 46.5. White count 5.4, hemoglobin 11.4, hematocrit 34, platelets 90,000. EKG today, 05/19/18, was reviewed. The patient is in normal sinus rhythm, rate of 68 with intraventricular conduction delay. There is new lateral ST-segment depression approximately [address] elevation appreciated. Echocardiogram 05/18/18, LVEF 40% to 45% with focal wall motion abnormality involving the apex. There is mild LVH. Left atrium is moderately dilated. Moderate dilatation involving the right atrium. Mild AI. Mild mitral regurgitation. Mild mitral stenosis. Mean gradient is 4 mmHg. There is no evidence of ascending aortic aneurysm. Chest x-ray 05/18/18, did not reveal active cardiopulmonary disease. ASSESSMENT AND PLAN: 1. Non-ST segment myocardial infarction. Troponin peaked 05/18/18 at 4.64. The patient presented with anginal equivalent chest pain and shortness of breath. Would recommend continuation of IV heparin therapy, aspirin, Plavix, beta blockade, and statin therapy. The patient is status post bare-metal stent placement to mid left anterior descending artery near bifurcation of diagonal 1 , ostial right coronary artery, and distal right coronary artery. There is no evidence of ST- segment elevation on EKG to suggest in-stent thrombosis. The patient is still complaining of chest pain described as an ache, although there are atypical qualities such as being reproducible with palpation. At this current time, we are unable to place her on nitrate therapy given hypotension. We will continue medical therapy. Given complexity of the patient's medical comorbidities such as advanced hepatocellular carcinoma, portal hypertension, chronic thrombocytopenia, and anemia, we will contact her primary lpn home health and primary oncologist for coordination of care and make further recommendations. Please note that there is an apical focal wall motion abnormality; however, according to [facility] information from her February admission, she had apical inferior, apical septal, and apical hypokinesis. Her ejection fraction at that time was 58%. 2. Newly diagnosed moderate reduction in left ventricular ejection fraction. Would recommend changing Lopressor to Toprol therapy for heart failure guideline driven medical therapy. She is on lisinopril therapy which we would continue. She is compensated at this time, thus we will not initiate diuretic regimen. 3. History of advanced hepatocellular carcinoma, on Keytruda. We will contact her primary oncologist. The patient states that she has a planned appointment this coming Thursday. 4. Coronary artery disease, on aspirin, statin, beta blockade therapy. Please refer to above, #1. 5. Thrombocytopenia. Due to above, #2. Platelets are stable at 90,000. Denies bleeding complications at this current time. She is also to continue dual- antiplatelet therapy in addition to IV heparin therapy. 6. History of hypertension. Currently hypotensive, but not symptomatic. We will continue current medical therapy. 7. Disposition. Pending course. Dr. Chata Lovett has personally seen and examined the patient and agrees with the above assessment and plan. Please note that we will contact the patient's primary lpn home health and primary oncologist for coordination of care given complexity of the patient's comorbidities. Thank you for this kind consultation. Please feel free to contact our service with any future questions or concerns. ADDIE LOZA NP [id number]/[facility] #: [id number] TASH
[2018-05-20] MEDS: Heparin DRIP 25,000 UNITS(*) 25,000 UNITS/500 ML BAG IVPB SCH (03:22)
[2018-05-20] MEDS: CMCS: Pantoprazole TAB (NF) 40 MG TAB PO SCH (05:06)
[2018-05-20] MEDS: Levothyroxine TAB* 100 MCG TAB PO SCH (05:06)
[2018-05-20] MEDS: Insulin GLARGINE(*) 1 UNITS UNIT SUBCUT SCH (09:08)
[2018-05-20] MEDS: FLUoxetine CAP* 20 MG PO SCH (09:09)
[2018-05-20] MEDS: Aspirin 81 mg CHEW TAB* 81 MG TAB.CHEW PO SCH (09:09)
[2018-05-20] MEDS: Clopidogrel TAB* 75 MG PO SCH (09:09)
[2018-05-20] MEDS: Metoprolol Succinate XL TAB* 25 MG PO SCH (09:09)
[2018-05-20] MEDS: Colchicine* 0.6 MG TAB PO SCH (09:09)
[2018-05-20] MEDS: Spironolactone TAB* 25 MG PO SCH (09:09)
[2018-05-20] MEDS: Insulin LISPRO* 1 UNITS UNIT SUBCUT SCH ×3 (09:09→17:37)
[2018-05-20] MEDS: Gabapentin CAP(*) 300 MG PO SCH (09:10)
[2018-05-20] MEDS ORDERED: Furosemide IV* 10 MG/ML VIAL (40 MG) IV ONE (17:09)
--- NOTE | 2018-05-20 17:10 | PN ---
Subjective Date of Service: 05/20/18 Interval History: f/u PA no chest pain current dyspneic at rest aldactone started this AM, I/O + today Medications Active Medications: Acetaminophen (Tylenol Tab*) 650 mg PO Q4H PRN PRN Reason: FEVER/PAIN Al Hydrox/Mg Hydrox/Simethicone (Maalox Plus*) 30 ml PO Q6H PRN PRN Reason: INDIGESTION Aspirin (Aspirin 81 Mg Chew Tab*) 81 mg PO DAILY [facility] Last Admin: 05/20/18 09:09 Dose: 81 mg Atorvastatin Calcium (Lipitor*) 10 mg PO 1700 [facility]; Protocol Last Admin: 05/19/18 17:18 Dose: 10 mg Clopidogrel Bisulfate (Plavix Tab*) 75 mg PO DAILY [facility] Last Admin: 05/20/18 09:09 Dose: 75 mg Dextrose (D50w Syringe 50 Ml*) 12.5 gm IV PUSH .FOR FS < 60 - SS PRN PRN Reason: FS < 60 Docusate Sodium (Colace Cap*) 100 mg PO BID PRN PRN Reason: CONSTIPATION Fluoxetine HCl (Prozac Cap*) 20 mg PO DAILY [facility] Last Admin: 05/20/18 09:09 Dose: 20 mg Gabapentin (Neurontin Cap(*)) 600 mg PO DAILY [facility] Last Admin: 05/20/18 09:10 Dose: 600 mg Heparin Sodium (Porcine) (Heparin Vial(*)) 0 units IV .FOR BOLUSES PRN PRN Reason: HEPARIN DRIP BOLUSES Last Admin: 05/19/18 18:54 Dose: 2,000 units Heparin Sodium/Dextrose (Heparin Drip 25,000 Units(*)) 25,000 units in 500 mls @ 0 mls/hr IVPB .PER RATE [facility]; Protocol Last Admin: 05/20/18 03:22 Dose: 17 mls/hr Insulin Glargine (Lantus(*)) 22 units SUBCUT Q24H [facility] Last Admin: 05/20/18 09:08 Dose: 22 units Insulin Human Lispro (Humalog*) 0 units SUBCUT AC [facility]; Protocol Last Admin: 05/20/18 13:07 Dose: 3 units Levothyroxine Sodium (Synthroid Tab*) 200 mcg PO DAILY@0600 [facility] Last Admin: 05/20/18 05:06 Dose: 200 mcg Lisinopril (Prinivil Tab*) 20 mg PO DAILY [facility] Metoprolol Succinate (Toprol Xl Tab*) 25 mg PO DAILY [facility] Last Admin: 05/20/18 09:09 Dose: 25 mg Ondansetron HCl (Zofran Inj*) 4 mg IV Q4H PRN PRN Reason: NAUSEA/VOMITING Pantoprazole Sodium (Protonix Tab (Nf)) 40 mg PO 0600 [facility] Last Admin: 05/20/18 05:06 Dose: 40 mg Senna (Senokot Tab*) 1 tab PO BID PRN PRN Reason: CONSTIPATION Spironolactone (Aldactone Tab*) 25 mg PO DAILY [facility] Last Admin: 05/20/18 09:09 Dose: 25 mg Objective Vital Signs: Temp Pulse Resp BP Pulse Ox 97.8 F 78 22 127/52 93 05/20/18 13:36 05/20/18 07:53 05/20/18 13:36 05/20/18 07:53 05/20/18 07:53 Oxygen Devices in Use Now: None Appearance: mildly increased work of breathing and tachypnea Neck: Trachea Midline, - - uncertain jvp Respiratory: - - mild increased wob and tachypnea, rales R base Cardiovascular: RRR, No Edema Abdominal: NL Sounds; No Tenderness; No Distention Extremities: No Clubbing, Cyanosis Skin: No Rash or Ulcers Neurological: Alert and Oriented x 3 Laboratory Results: 05/19/18 04:57 05/19/18 04:57 APTT 60.5 seconds (26.0-36.3) H 05/20/18 07:09 Total Bilirubin 0.60 mg/dL (0.2-1.0) 05/18/18 21:01 AST 68 U/L (13-39) H 05/18/18 21:01 ALT 27 U/L (7-52) 05/18/18 21:01 Alkaline Phosphatase 132 U/L (34-104) H 05/18/18 21:01 B-Natriuretic Peptide 949 pg/mL (<=100) H 05/19/18 13:49 Total Protein 7.3 g/dL (6.4-8.9) 05/18/18 21:01 Albumin 3.5 g/dL (3.2-5.2) 05/18/18 21:01 Globulin 3.8 g/dL (2-4) 05/18/18 21:01 Albumin/Globulin Ratio 0.9 (1-3) L 05/18/18 21:01 Triglycerides 82 mg/dL 05/19/18 04:57 Cholesterol 108 mg/dL 05/19/18 04:57 LDL Cholesterol 45 mg/dL 05/19/18 04:57 HDL Cholesterol 46.5 mg/dL 05/19/18 04:57 05/18/18 05/19/18 05/19/18 21:01 00:54 04:57 Troponin I 4.64 H* 3.94 H* 3.32 H* 05/20/18 07:09 Troponin I 2.40 H* Diagnostic Imaging: lvef 40% with mid to distal LAD WMA Assessment/Plan Overall suspect a type 4 PA related to prior elective BMS stent placement but a de susan lesion also possible. Cardiac catheterization with intent for revascularization indicated and recommended. Risks, benefits and alternatives discussed and patient wished to proceed. I discussed with patients polymer scientist Dr. Patterson on phone and he recommends this as well along with HARRIET use. I also discussed with patients Oncologist Dr. Huffman and she agrees with this and is ok to use prolonged DAPT at least 6 months and preferably a year any thrombotic including brillinta. Depending on mechanism identified at angiography would consider changing plavix to brillinta would defer to Dr. Godinez who case has been discussed with. Needs diuresis (40 mg IV lasix x 1 given x 1 now) and re-evaluated prior to procedure tomorrow. Otherwise agree with meds as above
[2018-05-20] MEDS: Atorvastatin* 10 MG TAB PO SCH (17:37)
[2018-05-20] MEDS: Lisinopril TAB* 10 MG PO SCH (20:57)
[2018-05-21] MEDS ORDERED: LORazepam TAB(*) 0.5 MG PO PRN (04:30)
[2018-05-21] MEDS ORDERED: Morphine ORAL CONCENTRATE* 5 MG/0.25 ML ORAL.SYRIN PO ONE (04:30)
[2018-05-21] MEDS: Levothyroxine TAB* 100 MCG TAB PO SCH (05:23)
[2018-05-21] MEDS: CMCS: Pantoprazole TAB (NF) 40 MG TAB PO SCH (05:23)
[2018-05-21 06:39] LABS: Hematocrit 34 % (35-47); Hemoglobin 11.2 g/dl (12.0-16.0); Mean Corpuscular HGB Conc 33 g/dl (31-36); Mean Corpuscular Hemoglobin 32 pg (27-31); Mean Corpuscular Volume 95 fL (80-97); Mean Platelet Volume 9.8 fL (7.4-10.4); Platelet Count 92 10^3/ul (150-450); Red Blood Count 3.54 10^6/ul (4.00-5.40); Red Cell Distribution Width 16 % (10.5-15); White Blood Count 6.8 10^3/ul (3.5-10.8)
[2018-05-21 06:54] LABS: EGFR Non-African American 77.4 (>60)
[2018-05-21] MEDS: Insulin LISPRO* 1 UNITS UNIT SUBCUT SCH ×3 (08:15→19:09)
[2018-05-21] MEDS: Heparin DRIP 25,000 UNITS(*) 25,000 UNITS/500 ML BAG IVPB SCH (08:40)
[2018-05-21] MEDS: FLUoxetine CAP* 20 MG PO SCH (08:44)
[2018-05-21] MEDS: Clopidogrel TAB* 75 MG PO SCH (08:44)
[2018-05-21] MEDS: Aspirin 81 mg CHEW TAB* 81 MG TAB.CHEW PO SCH (08:44)
[2018-05-21] MEDS: Gabapentin CAP(*) 300 MG PO SCH (08:45)
[2018-05-21] MEDS: Metoprolol Succinate XL TAB* 25 MG PO SCH (08:53)
[2018-05-21] MEDS: Spironolactone TAB* 25 MG PO SCH (08:53)
[2018-05-21] MEDS: Insulin GLARGINE(*) 1 UNITS UNIT SUBCUT SCH (08:53)
[2018-05-21] MEDS: Lisinopril TAB* 10 MG PO SCH ×2 (08:56→19:57)
[2018-05-21] MEDS ORDERED: Midazolam* 1 MG/ML 10 ML VIAL (10 MG) ONE (10:08)
[2018-05-21] MEDS ORDERED: Heparin(*) 1000 UNIT/ML 10 ML VIAL CATH LAB IV ONE (10:08)
[2018-05-21] MEDS ORDERED: fentaNYL* 50 MCG/ML 2 ML VIAL (100 MCG VIAL) ONE (10:08)
[2018-05-21] MEDS ORDERED: VERAPAMIL 2.5 MG/ML 2 ML VIAL ** 5 mg/2 ml ONE (10:09)
[2018-05-21] MEDS ORDERED: Lidocaine 1% INJ* 10 MG/ML 30 ML SDV ONE (10:09)
[2018-05-21] MEDS ORDERED: Heparin 2 UNITS/ML IVPREMIX* 3,000 ML IV ONE (10:09)
[2018-05-21] MEDS ORDERED: Iohexol 350 (CONTRAST) 200 ML MDV IV ONE ×2 (10:09→10:13)
[2018-05-21] MEDS ORDERED: nitroGLYCERIN DRIP* 25,000 MCG/250 ML BTL ONE (10:09)
[2018-05-21] MEDS ORDERED: Clopidogrel TAB* 75 MG ONE (11:10)
[2018-05-21] MEDS ORDERED: Nitroglycerin TAB 0.4 MG* 0.4 MG TAB SL PRN (12:22)
[2018-05-21] MEDS ORDERED: NS 0.9% 1000 ML* 400 ML IV SCH (12:30)
[2018-05-21] MEDS: Atorvastatin* 80 MG TAB PO SCH (12:40)
[2018-05-22] MEDS: Levothyroxine TAB* 100 MCG TAB PO SCH (05:55)
[2018-05-22] MEDS: CMCS: Pantoprazole TAB (NF) 40 MG TAB PO SCH (05:56)
[2018-05-22 06:11] LABS: Hematocrit 33 % (35-47); Hemoglobin 10.7 g/dl (12.0-16.0); Mean Corpuscular HGB Conc 33 g/dl (31-36); Mean Corpuscular Hemoglobin 32 pg (27-31); Mean Corpuscular Volume 96 fL (80-97); Mean Platelet Volume 10.1 fL (7.4-10.4); Platelet Count 88 10^3/ul (150-450); Red Cell Distribution Width 17 % (10.5-15); White Blood Count 5.6 10^3/ul (3.5-10.8)
[2018-05-22 06:28] LABS: EGFR Non-African American 73.9 (>60)
[2018-05-22 07:14] LABS: ABS Basophils 0 10^3/ul (0-0.2); ABS Eosinophils 0.1 10^3/ul (0-0.6); ABS Lymphocytes 0.9 10^3/ul (1.0-4.8); ABS Monocytes 0.8 10^3/ul (0-0.8); ABS Neutrophils 3.8 10^3/ul (1.5-7.7); ABS Nucleated RBC 0 10^3/ul; Eosinophil % 2.7 %; Lymphocyte % 16.5 %; Nucleated Red Blood Cells % 0
[2018-05-22] MEDS: FLUoxetine CAP* 20 MG PO SCH (08:16)
[2018-05-22] MEDS: Clopidogrel TAB* 75 MG PO SCH (08:16)
[2018-05-22] MEDS: Metoprolol Succinate XL TAB* 25 MG PO SCH (08:16)
[2018-05-22] MEDS: Spironolactone TAB* 25 MG PO SCH (08:17)
[2018-05-22] MEDS: Aspirin 81 mg CHEW TAB* 81 MG TAB.CHEW PO SCH (08:17)
[2018-05-22] MEDS: Gabapentin CAP(*) 300 MG PO SCH (08:17)
[2018-05-22] MEDS: Insulin GLARGINE(*) 1 UNITS UNIT SUBCUT SCH (09:45)
[2018-05-22] MEDS: Insulin LISPRO* 1 UNITS UNIT SUBCUT SCH ×3 (09:46→18:44)
--- NOTE | 2018-05-22 11:14 | PN ---
Subjective Date of Service: 05/22/18 Interval History: f/u type 4 HI no chest pain current was dyspneic last PM, now feels well Medications Active Medications: Acetaminophen (Tylenol Tab*) 650 mg PO Q4H PRN PRN Reason: FEVER/PAIN Al Hydrox/Mg Hydrox/Simethicone (Maalox Plus*) 30 ml PO Q6H PRN PRN Reason: INDIGESTION Aspirin (Aspirin 81 Mg Chew Tab*) 81 mg PO DAILY [facility] Last Admin: 05/22/18 08:17 Dose: 81 mg Atorvastatin Calcium (Lipitor*) 80 mg PO 1700 [facility] Last Admin: 05/21/18 12:40 Dose: 80 mg Clopidogrel Bisulfate (Plavix Tab*) 75 mg PO DAILY [facility] Last Admin: 05/22/18 08:16 Dose: 75 mg Dextrose (D50w Syringe 50 Ml*) 12.5 gm IV PUSH .FOR FS < 60 - SS PRN PRN Reason: FS < 60 Docusate Sodium (Colace Cap*) 100 mg PO BID PRN PRN Reason: CONSTIPATION Fluoxetine HCl (Prozac Cap*) 20 mg PO DAILY [facility] Last Admin: 05/22/18 08:16 Dose: 20 mg Gabapentin (Neurontin Cap(*)) 600 mg PO DAILY [facility] Last Admin: 05/22/18 08:17 Dose: 600 mg Insulin Glargine (Lantus(*)) 22 units SUBCUT Q24H [facility] Last Admin: 05/22/18 09:45 Dose: 22 units Insulin Human Lispro (Humalog*) 0 units SUBCUT AC [facility]; Protocol Last Admin: 05/22/18 09:46 Dose: 5 units Levothyroxine Sodium (Synthroid Tab*) 200 mcg PO DAILY@0600 [facility] Last Admin: 05/22/18 05:55 Dose: 200 mcg Lisinopril (Prinivil Tab*) 20 mg PO BEDTIME [facility] Last Admin: 05/21/18 19:57 Dose: 20 mg Metoprolol Succinate (Toprol Xl Tab*) 25 mg PO DAILY [facility] Last Admin: 05/22/18 08:16 Dose: 25 mg Nitroglycerin (Nitroglycerin Tab 0.4 Mg*) 0.4 mg SL Q5M PRN PRN Reason: ANGINA Ondansetron HCl (Zofran Inj*) 4 mg IV Q4H PRN PRN Reason: NAUSEA/VOMITING Pantoprazole Sodium (Protonix Tab (Nf)) 40 mg PO 0600 [facility] Last Admin: 05/22/18 05:56 Dose: 40 mg Senna (Senokot Tab*) 1 tab PO BID PRN PRN Reason: CONSTIPATION Spironolactone (Aldactone Tab*) 25 mg PO DAILY [facility] Last Admin: 05/22/18 08:17 Dose: 25 mg Objective Vital Signs: Temp Pulse Resp BP Pulse Ox 98.3 F 72 18 125/62 93 05/22/18 07:30 05/22/18 10:01 05/22/18 10:01 05/22/18 10:00 05/22/18 10:01 Oxygen Devices in Use Now: Nasal Cannula Appearance: nad, pleasant Neck: Trachea Midline, - - uncertain jvp Respiratory: Symmetrical Chest Expansion and Respiratory Effort, - - mild basilar crackles Cardiovascular: RRR, No Edema Abdominal: NL Sounds; No Tenderness; No Distention Extremities: No Clubbing, Cyanosis Skin: No Rash or Ulcers Neurological: Alert and Oriented x 3 Laboratory Results: 05/22/18 05:50 05/22/18 05:50 APTT 31.6 seconds (26.0-36.3) 05/22/18 05:50 Total Bilirubin 0.60 mg/dL (0.2-1.0) 05/18/18 21:01 AST 68 U/L (13-39) H 05/18/18 21:01 ALT 27 U/L (7-52) 05/18/18 21:01 Alkaline Phosphatase 132 U/L (34-104) H 05/18/18 21:01 B-Natriuretic Peptide 949 pg/mL (<=100) H 05/19/18 13:49 Total Protein 7.3 g/dL (6.4-8.9) 05/18/18 21:01 Albumin 3.5 g/dL (3.2-5.2) 05/18/18 21:01 Globulin 3.8 g/dL (2-4) 05/18/18 21:01 Albumin/Globulin Ratio 0.9 (1-3) L 05/18/18 21:01 Triglycerides 82 mg/dL 05/19/18 04:57 Cholesterol 108 mg/dL 05/19/18 04:57 LDL Cholesterol 45 mg/dL 05/19/18 04:57 HDL Cholesterol 46.5 mg/dL 05/19/18 04:57 05/18/18 05/19/18 05/19/18 21:01 00:54 04:57 Troponin I 4.64 H* 3.94 H* 3.32 H* 05/20/18 07:09 Troponin I 2.40 H* Diagnostic Imaging: lvef 40% with mid LAD WMA EKG Data: EKG this AM: NSR, incomplete LBBB Assessment/Plan Sherley Gómez is a 73 year old woman with multiple co-morbidities as previously documented admitted with a type 4 HI with heart failure as a complication of prior elective BMS stent placement 01/2018. Now s/p HARRIET to complex mid-LAD critical in stent restenosis (culprit). Has residual restenosis of proximal RCA stent. - Agree with medications as above except add sq heparin dvt prophylaxis today and tomorrow (ordered) along with daily cbc and bmp (ordered) - Plan for staged PCI to RCA Thursday (Dr. Godinez) - Keep I/o even - Will follow
[2018-05-22] MEDS: Heparin VIAL(*) 5000 UNITS/ML VIAL (FIVE THOUSAND) SUBCUT SCH ×2 (14:09→21:00)
[2018-05-22] MEDS: Atorvastatin* 80 MG TAB PO SCH (18:45)
[2018-05-22] MEDS: Lisinopril TAB* 10 MG PO SCH (20:58)
[2018-05-23] MEDS: Levothyroxine TAB* 100 MCG TAB PO SCH (05:21)
[2018-05-23] MEDS: Heparin VIAL(*) 5000 UNITS/ML VIAL (FIVE THOUSAND) SUBCUT SCH ×3 (05:21→20:48)
[2018-05-23] MEDS: CMCS: Pantoprazole TAB (NF) 40 MG TAB PO SCH (05:21)
[2018-05-23 05:46] LABS: Hematocrit 35 % (35-47); Hemoglobin 11.6 g/dl (12.0-16.0); Mean Corpuscular HGB Conc 33 g/dl (31-36); Mean Corpuscular Hemoglobin 32 pg (27-31); Mean Corpuscular Volume 95 fL (80-97); Mean Platelet Volume 9.7 fL (7.4-10.4); Platelet Count 123 10^3/ul (150-450); Red Blood Count 3.67 10^6/ul (4.00-5.40); Red Cell Distribution Width 15 % (10.5-15); White Blood Count 6.5 10^3/ul (3.5-10.8)
[2018-05-23 06:04] LABS: EGFR Non-African American 62.5 (>60)
--- NOTE | 2018-05-23 09:05 | PN ---
Subjective Date of Service: 05/23/18 Interval History: f/u type 4 NC, chf no chest pain current was dyspneic again last PM, now feels well Was able to lay flat for 5 minutes on room air and 02 sats maintained 93% Medications Active Medications: Acetaminophen (Tylenol Tab*) 650 mg PO Q4H PRN PRN Reason: FEVER/PAIN Al Hydrox/Mg Hydrox/Simethicone (Maalox Plus*) 30 ml PO Q6H PRN PRN Reason: INDIGESTION Aspirin (Aspirin 81 Mg Chew Tab*) 81 mg PO DAILY [facility] Last Admin: 05/22/18 08:17 Dose: 81 mg Atorvastatin Calcium (Lipitor*) 80 mg PO 1700 [facility] Last Admin: 05/22/18 18:45 Dose: 80 mg Clopidogrel Bisulfate (Plavix Tab*) 75 mg PO DAILY [facility] Last Admin: 05/22/18 08:16 Dose: 75 mg Dextrose (D50w Syringe 50 Ml*) 12.5 gm IV PUSH .FOR FS < 60 - SS PRN PRN Reason: FS < 60 Docusate Sodium (Colace Cap*) 100 mg PO BID PRN PRN Reason: CONSTIPATION Fluoxetine HCl (Prozac Cap*) 20 mg PO DAILY [facility] Last Admin: 05/22/18 08:16 Dose: 20 mg Gabapentin (Neurontin Cap(*)) 600 mg PO DAILY [facility] Last Admin: 05/22/18 08:17 Dose: 600 mg Heparin Sodium (Porcine) (Heparin Vial(*)) 5,000 units SUBCUT Q8HR [facility] Stop: 05/23/18 22:00 Last Admin: 05/23/18 05:21 Dose: 5,000 units Insulin Glargine (Lantus(*)) 22 units SUBCUT Q24H [facility] Last Admin: 05/22/18 09:45 Dose: 22 units Insulin Human Lispro (Humalog*) 0 units SUBCUT AC [facility]; Protocol Last Admin: 05/22/18 18:44 Dose: 2 units Levothyroxine Sodium (Synthroid Tab*) 200 mcg PO DAILY@0600 [facility] Last Admin: 05/23/18 05:21 Dose: 200 mcg Lisinopril (Prinivil Tab*) 20 mg PO BEDTIME [facility] Last Admin: 05/22/18 20:58 Dose: 20 mg Metoprolol Succinate (Toprol Xl Tab*) 25 mg PO DAILY [facility] Last Admin: 05/22/18 08:16 Dose: 25 mg Nitroglycerin (Nitroglycerin Tab 0.4 Mg*) 0.4 mg SL Q5M PRN PRN Reason: ANGINA Ondansetron HCl (Zofran Inj*) 4 mg IV Q4H PRN PRN Reason: NAUSEA/VOMITING Pantoprazole Sodium (Protonix Tab (Nf)) 40 mg PO 0600 [facility] Last Admin: 05/23/18 05:21 Dose: 40 mg Senna (Senokot Tab*) 1 tab PO BID PRN PRN Reason: CONSTIPATION Spironolactone (Aldactone Tab*) 25 mg PO DAILY [facility] Last Admin: 05/22/18 08:17 Dose: 25 mg Objective Vital Signs: Temp Pulse Resp BP Pulse Ox 98.7 F 72 19 124/46 96 05/23/18 04:00 05/23/18 08:00 05/23/18 08:00 05/23/18 03:05 05/23/18 08:00 Oxygen Devices in Use Now: None Appearance: nad, pleasant Neck: Trachea Midline, - - uncertain jvp Respiratory: Symmetrical Chest Expansion and Respiratory Effort, - - faint crackles left base Cardiovascular: RRR, No Edema Abdominal: NL Sounds; No Tenderness; No Distention Extremities: No Clubbing, Cyanosis Skin: No Rash or Ulcers Neurological: Alert and Oriented x 3 Laboratory Results: 05/23/18 05:30 05/23/18 05:30 APTT 31.6 seconds (26.0-36.3) 05/22/18 05:50 Total Bilirubin 0.60 mg/dL (0.2-1.0) 05/18/18 21:01 AST 68 U/L (13-39) H 05/18/18 21:01 ALT 27 U/L (7-52) 05/18/18 21:01 Alkaline Phosphatase 132 U/L (34-104) H 05/18/18 21:01 B-Natriuretic Peptide 949 pg/mL (<=100) H 05/19/18 13:49 Total Protein 7.3 g/dL (6.4-8.9) 05/18/18 21:01 Albumin 3.5 g/dL (3.2-5.2) 05/18/18 21:01 Globulin 3.8 g/dL (2-4) 05/18/18 21:01 Albumin/Globulin Ratio 0.9 (1-3) L 05/18/18 21:01 Triglycerides 82 mg/dL 05/19/18 04:57 Cholesterol 108 mg/dL 05/19/18 04:57 LDL Cholesterol 45 mg/dL 05/19/18 04:57 HDL Cholesterol 46.5 mg/dL 05/19/18 04:57 05/18/18 05/19/18 05/19/18 21:01 00:54 04:57 Troponin I 4.64 H* 3.94 H* 3.32 H* 05/20/18 07:09 Troponin I 2.40 H* Diagnostic Imaging: lvef 40% with mid LAD WMA EKG Data: EKG this AM: NSR, incomplete LBBB Assessment/Plan Sherley Gómez is a 73 year old woman with multiple co-morbidities as previously documented admitted with a type 4 NC with heart failure LVEF 40% as a complication of prior elective BMS stent placement 01/2018. Now s/p HARRIET to complex mid-LAD critical in stent restenosis (culprit). Has residual restenosis of proximal RCA stent. - Agree with medications as above. Needs close K+ monitoring as outpatient if left on AceI/aldactone - Hold sq heparin dvt prophylaxis after this evening (ordered) - daily cbc and bmp - Plan for staged PCI to RCA Thursday - Keep I/o even today, driss-procedure IVF as per Dr. Godinez
[2018-05-23] MEDS: Clopidogrel TAB* 75 MG PO SCH (09:15)
[2018-05-23] MEDS: Aspirin 81 mg CHEW TAB* 81 MG TAB.CHEW PO SCH (09:15)
[2018-05-23] MEDS: Insulin GLARGINE(*) 1 UNITS UNIT SUBCUT SCH (09:15)
[2018-05-23] MEDS: Metoprolol Succinate XL TAB* 25 MG PO SCH (09:15)
[2018-05-23] MEDS: FLUoxetine CAP* 20 MG PO SCH (09:15)
[2018-05-23] MEDS: Insulin LISPRO* 1 UNITS UNIT SUBCUT SCH ×3 (09:15→18:23)
[2018-05-23] MEDS: Gabapentin CAP(*) 300 MG PO SCH (09:15)
[2018-05-23] MEDS: Spironolactone TAB* 25 MG PO SCH (09:16)
[2018-05-23] MEDS: Atorvastatin* 80 MG TAB PO SCH (18:22)
[2018-05-23] MEDS: Lisinopril TAB* 10 MG PO SCH (20:47)
[2018-05-23] MEDS ORDERED: Temazepam CAP* 15 MG PO ONE (23:40)
[2018-05-24] MEDS: Insulin LISPRO* 1 UNITS UNIT SUBCUT SCH ×3 (05:46→18:56)
[2018-05-24] MEDS ORDERED: NS 0.9% 1000 ML* 1,000 ML IV SCH (06:00)
[2018-05-24] MEDS: CMCS: Pantoprazole TAB (NF) 40 MG TAB PO SCH (06:07)
[2018-05-24] MEDS: Clopidogrel TAB* 75 MG PO SCH ×2 (06:07→12:15)
[2018-05-24] MEDS: Aspirin 81 mg CHEW TAB* 81 MG TAB.CHEW PO SCH ×2 (06:07→12:15)
[2018-05-24] MEDS: Levothyroxine TAB* 100 MCG TAB PO SCH (06:07)
[2018-05-24 06:19] LABS: Hematocrit 34 % (35-47); Hemoglobin 11.5 g/dl (12.0-16.0); Mean Corpuscular HGB Conc 34 g/dl (31-36); Mean Corpuscular Hemoglobin 32 pg (27-31); Mean Corpuscular Volume 94 fL (80-97); Mean Platelet Volume 9.6 fL (7.4-10.4); Platelet Count 116 10^3/ul (150-450); Red Blood Count 3.64 10^6/ul (4.00-5.40); Red Cell Distribution Width 15 % (10.5-15); White Blood Count 4.7 10^3/ul (3.5-10.8)
[2018-05-24 06:32] LABS: EGFR Non-African American 63.3 (>60)
[2018-05-24] MEDS: Insulin GLARGINE(*) 1 UNITS UNIT SUBCUT SCH (07:14)
[2018-05-24] MEDS ORDERED: nitroGLYCERIN DRIP* 25,000 MCG/250 ML BTL ONE (07:35)
[2018-05-24] MEDS ORDERED: Heparin 2 UNITS/ML IVPREMIX* 3,000 ML IV ONE (07:35)
[2018-05-24] MEDS ORDERED: VERAPAMIL 2.5 MG/ML 2 ML VIAL ** 5 mg/2 ml ONE (07:35)
[2018-05-24] MEDS ORDERED: fentaNYL* 50 MCG/ML 2 ML VIAL (100 MCG VIAL) ONE (07:35)
[2018-05-24] MEDS ORDERED: Heparin(*) 1000 UNIT/ML 10 ML VIAL CATH LAB IV ONE (07:35)
[2018-05-24] MEDS ORDERED: Midazolam* 1 MG/ML 10 ML VIAL (10 MG) ONE (07:35)
[2018-05-24] MEDS ORDERED: Lidocaine 1% INJ* 10 MG/ML 30 ML SDV ONE (07:36)
[2018-05-24] MEDS ORDERED: Iohexol 350 (CONTRAST) 200 ML MDV IV ONE ×4 (07:36→10:19)
[2018-05-24] MEDS ORDERED: Bivalirudin(*) 250 MG VIAL ONE (08:14)
[2018-05-24] MEDS ORDERED: Heparin 2 UNITS/ML IVPREMIX* 1,000 ML IV ONE (09:48)
[2018-05-24] MEDS ORDERED: Nitroglycerin TAB 0.4 MG* 0.4 MG TAB SL PRN (10:28)
[2018-05-24] MEDS: FLUoxetine CAP* 20 MG PO SCH (12:39)
[2018-05-24] MEDS: Gabapentin CAP(*) 300 MG PO SCH (12:39)
[2018-05-24] MEDS: Spironolactone TAB* 25 MG PO SCH (12:40)
[2018-05-24] MEDS: Metoprolol Succinate XL TAB* 25 MG PO SCH (12:40)
[2018-05-24] MEDS: Atorvastatin* 80 MG TAB PO SCH (18:56)
[2018-05-24] MEDS ORDERED: Ticagrelor* 90 MG TAB PO ONE (21:00)
[2018-05-24] MEDS: Lisinopril TAB* 10 MG PO SCH (21:02)
[2018-05-25 05:47] LABS: Hematocrit 33 % (35-47); Hemoglobin 11.1 g/dl (12.0-16.0); Mean Corpuscular HGB Conc 33 g/dl (31-36); Mean Corpuscular Hemoglobin 31 pg (27-31); Mean Corpuscular Volume 94 fL (80-97); Mean Platelet Volume 9.4 fL (7.4-10.4); Platelet Count 118 10^3/ul (150-450); Red Blood Count 3.54 10^6/ul (4.00-5.40); Red Cell Distribution Width 16 % (10.5-15); White Blood Count 4.4 10^3/ul (3.5-10.8)
[2018-05-25 06:12] LABS: EGFR Non-African American 67.8 (>60)
[2018-05-25] MEDS: Levothyroxine TAB* 100 MCG TAB PO SCH (06:17)
[2018-05-25] MEDS: CMCS: Pantoprazole TAB (NF) 40 MG TAB PO SCH (06:17)
[2018-05-25] MEDS ORDERED: Perflutren Lipid Microsphere* 3 ML VIAL ONE (08:03)
[2018-05-25] MEDS: FLUoxetine CAP* 20 MG PO SCH (09:14)
[2018-05-25] MEDS: Metoprolol Succinate XL TAB* 25 MG PO SCH (09:14)
[2018-05-25] MEDS: Gabapentin CAP(*) 300 MG PO SCH (09:14)
[2018-05-25] MEDS: Ticagrelor* 90 MG TAB PO SCH ×2 (09:14→20:31)
[2018-05-25] MEDS: Aspirin 81 mg CHEW TAB* 81 MG TAB.CHEW PO SCH (09:14)
--- NOTE | 2018-05-25 09:14 | CATH ---
CC: Sherley Chou MD; Dr. Huffman, [facility] [place], [place]; Dr. Patterson, [facility] but he may also be at [facility] , Department of Cardiology CARDIAC CATHETERIZATION AND INTERVENTIONAL REPORT: DATE OF PROCEDURE: 05/21/18 INDICATION FOR PROCEDURE: The patient presents with non-ST elevation myocardial infarction, history of prior bare-metal stents placed in the proximal to ostial right coronary artery, distal right coronary artery into the PDA, mid LAD with prior history of compromise of the diagonal branch, assessed for the presence of severe progressive coronary artery disease. PROCEDURE: Coronary arteriography, balloon angioplasty and stenting of the mid LAD with a 2.5 mm x 24 mm long Synergy drug-eluting stent postdilated to 2.65 to 2.7 mm with balloon angioplasty of the ostium of the diagonal branch. APPROACH: Right radial artery was assessed under ultrasound and found to be acceptable for an approach. PRECARDIAC CATHETERIZATION LABORATORY RESULTS: Hemoglobin and hematocrit of 11.2 and 34, platelet count of 92,000. BUN and creatinine of 13 and 0.7, sodium 135, potassium 3.6, chloride 105, bicarb 26. EQUIPMENT UTILIZED: 1. Right radial artery sheath was a 6-Algerian Glidesheath. 2. Diagnostic guidewire was a Wholey 260 length guidewire. Diagnostic coronary catheter was a 5-Algerian TIG-4 catheter. 3. Interventional guide catheter was a VL 3.5 curve guide catheter. 4. Interventional guidewires for both LAD and diagonal branch were BMW 190 length guidewires. 5. Balloon angioplasty catheters for diagonal branch ostium with a 1.2 mm x 8 mm long Emerge push, 1.5 mm x 12 mm long Emerge push balloon with eventually utilizing a 2.0 mm x 8 mm long NC Emerge post-stent placement in LAD. 6. Balloon angioplasty catheter for LAD - 2.0 mm x 20 mm long Emerge balloon with post-deployment inflations made with a 2.5 mm x 12 mm long NC Emerge balloon. MEDICATIONS GIVEN DURING THE CASE: Included the radial artery cocktail including 300 mcg of intracoronary nitroglycerin and 3 mg of verapamil. The patient came down on heparin drip, ACT was checked, and additional heparin boluses were given under the guidance of ACT checks. The patient received fentanyl 12.5 mcg intravenously. She received intracoronary nitroglycerin boluses as needed. CONSENT: The patient was interviewed and examined on the floor of the hospital where the risks and benefits were explained. She understood them and wished to proceed. DESCRIPTION OF PROCEDURE: The patient was brought to the cardiovascular laboratory, where a formal time-out was performed. The patient was prepped and draped in a sterile fashion. Under ultrasound guidance, the right radial artery was cannulated and sheath was placed. A Wholey wire was utilized to advance the diagnostic catheter to the ascending aorta and diagnostic coronary arteriography was performed. Following this, the decision was made to intervene into the left anterior descending artery. The diagnostic catheter was exchanged for a guide catheter. Of note, the intraarterial cocktail had already been given to the patient. ACT was checked and additional 3000 units of heparin was given and ACT for the guidance was utilized during the case for additional heparin boluses. The BMW guidewire was advanced down the left anterior descending artery into the LAD and a separate BMW wire into the diagonal branch. Balloon angioplasty was performed to the LAD initially followed by balloon angioplasty to the ostium of the diagonal branch. Following this, the stent was deployed and the wires were then switched and the diagonal ostium was re-cannulated. Further balloon angioplasty was performed utilizing kissing technique in both the ostium of the diagonal and in the LAD. Given the small caliber of the diagonal branch, no stent deployment was undertaken. The results were then assessed and at the end of the case, the catheter and sheath were removed and hemostasis was obtained with a right radial artery band. The reverse Barbeau was B. The patient tolerated the procedure well. The total contrast used was 150 cc of omnipaque contrast. The radiation exposure included 19.3 minutes of fluoro time, the Air Kerma was 3011 milliGy, the DAP was 17,697 microGY/m2. RESULTS: CORONARY ARTERIOGRAPHY: A. Right coronary artery - a dominant vessel supplying the PDA. There was question of perhaps faint filling of a thin posterior left ventricular branch. The proximal portion of the right coronary artery had diffuse in-stent restenosis with the narrowing as much as 75% to 80%. The distal stent had in- stent restenosis of 95%. B. Left coronary artery- 1. Left main - there was no significant obstruction seen in the left main. 2. Left anterior descending artery. The left anterior descending artery had mild disease in its proximal to mid portion with narrowing of 30% to 35%, it then tapered with significant in-stent diffuse restenosis of 95% to 99%. The ostium of the mid diagonal branch had a 95% to 99% lesion as well. The diagonal branch was a small caliber vessel in general. 3. Circumflex artery - supplied a bifurcating obtuse marginal branch and ended in a low-lying obtuse marginal branch. The ostium of the circumflex artery itself appeared to have a 55% to 60% ostial narrowing. INTERVENTION INTO LEFT ANTERIOR DESCENDING ARTERY: Successful reduction of critically 95% to 99% in-stent restenotic mid LAD with balloon angioplasty and placement of a 2.5 mm x 24 mm long Synergy drug- eluting stent postdilated to 2.65 mm to 2.7 mm with SCOT-3 flow, less than 10% residual stenosis. Of note, past the stented area in the LAD, there was a long segment of 50% narrowing noted in a small caliber segment. INTERVENTION INTO THIRD DIAGONAL BRANCH: Reduction of critical 95% to 99% obstruction with 80% obstruction still present, SCOT-3 flow, no dissection seen. Of note, the caliber appeared to be small in size, not of the size that I would clearly feel comfortable placing a stent or consider cutting balloon to this area. OVERALL ASSESSMENT: Significant severe diffuse in-stent restenosis in all of her prior stented areas as described above with successful intervention in the mid LAD. At this point in time, medical management will be pursued for the diagonal branch. In a separate setting, we will attempt the double stenting of the right coronary artery. 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 She will be maintained on clopidogrel and aspirin dual therapy and we will plan for our second procedure in a staged setting while in hospital. [id number] #: [id number] TASH
[2018-05-25] MEDS: Spironolactone TAB* 25 MG PO SCH (09:15)
[2018-05-25] MEDS: Insulin GLARGINE(*) 1 UNITS UNIT SUBCUT SCH (09:51)
[2018-05-25] MEDS: Insulin LISPRO* 1 UNITS UNIT SUBCUT SCH ×3 (09:51→18:46)
--- NOTE | 2018-05-25 17:29 | CATH ---
CC: Dr. Patterson, corn breeder at [facility], [place], [place]; Dr. Huffman, [facility]; Dr. Sherley Chou * INTERVENTIONAL CARDIAC CATHETERIZATION REPORT: DATE OF PROCEDURE: 05/24/18 INDICATION FOR THE PROCEDURE: The patient with in-stent restenosis in proximal and distal right coronary artery bare metal stents with acute coronary syndrome. CONSENT: The patient was interviewed and examined on the floor of the hospital where the risks and benefits were explained. She understood them and wished to proceed. APPROACH UTILIZED: The right radial artery was assessed under ultrasound and found to be acceptable for an approach; as such it was utilized for the approach for the case. PRECARDIAC CATHETERIZATION LABORATORY RESULTS: Hemoglobin and hematocrit of 11.5 and 34 with platelet count of 116,000. BUN and creatinine of 18 and 0.8. Sodium 135, potassium 4.5, chloride 106, bicarb 24. EQUIPMENT UTILIZED: 1. Right radial artery sheath - a 6-Surinamese Glidesheath. 2. Diagnostic guidewire, a Wholey normal length guidewire. 3. Guiding catheters attempted - a 6-Surinamese IR1 Heartrail, a 6-Surinamese AL1, a 6 - Surinamese ART4, a 6-Surinamese multipurpose one curve. 4. Interventional guidewires utilized, a BMW 190 cm, a Whisper 300 length exchange wire, an All Star 300 length exchange wire, a second BMW 190 length guidewire. 5. Initial balloon dilatation catheters - 2.0 x 15 mm long Emerge balloon, a 2.5 x 15 mm long Emerge balloon, a 1.5 x 8 mm long Emerge xyep-guz-dhas push balloon to use as an exchange catheter, a 2.0 x 8 mm long xtny-tbn-narw Emerge balloon. A 2.5 x 8 mm long Emerge balloon. 6. Stents utilized: A 2.5 x 12 mm long Xience Dahlia stent in the proximal right coronary artery. Multiple stents were attempted to deliver to the distal right coronary artery unsuccessfully. MEDICATIONS GIVEN DURING THE CASE: Included: 1. Versed for a total of 1.5 mg. 2. Heparin boluses under ACT guidance following the right radial artery. 3. A radial artery cocktail, which included 3000 units of heparin, 3 mg verapamil and 300 mcg of nitroglycerin. The patient had already received aspirin and clopidogrel prior to coming to the laboratory operations coordinator. DESCRIPTION OF PROCEDURE: The patient was brought to the cardiovascular laboratory. Formal time-out was performed. Under ultrasound guidance after the right radial artery area was prepped and draped in sterile fashion, the right radial artery was centered and the sheath was placed. Initial guide catheter attempts were made utilizing a IR1 6-Surinamese Heartrail guide catheter. A BMW wire was able to be advanced down the right coronary artery followed by a balloon dilatation to the distal portion of the right coronary artery with 2.0 x 15 mm long Emerge balloon. The balloon was then pulled back and also dilated in the proximal portion. Following this, attempts were made to deliver a 2.25 x 24 mm Synergy stent to the distal right coronary artery and were unsuccessful. Further balloon dilatation was performed in the proximal right coronary artery utilizing an Emerge 2.5 x 15 mm long balloon. Despite all of this, we were unable to get any good catheter support and as such multiple guide catheters were then attempted. Eventually, no stent could be delivered down to the distal portion despite even exchanging for a stiffer wire for support. Of note, the size of the right coronary artery appeared to be approximately 2.25 to 2.5 proximally. Eventually, a Xience drug-eluting stent was placed to cover the proximal bare metal stent utilizing a 2.5 x 12 mm long Xience Dahlia stent. Following this, a double wire was attempted as well to deliver any distal stents that were unsuccessful. Balloon angioplasty was then performed again to the distal portion of the right coronary artery with a 2.5 x 8 mm long Emerge balloon in multiple areas. At the end of the case, the artery was assessed both with wire in place and wire removed. The guide catheter and sheath were removed and hemostasis was obtained with a Vasc Band, the reverse Barbeau was a B. The total contrast utilized was 225 cc of Omnipaque dye. The radiation exposure included 54 minutes of fluoro time, the air kerma radiation was 4791 mGy, the DAP radiation as 43,615 microgray/m2. RESULTS: Successful reduction of significant 80% to 85% proximal in-stent restenosis with balloon angioplasty and placement of a 2.5 x 12 mm long Xience Dahlia stent post dilated to 2.65 to 2.7 mm with SCOT 3 flow. No dissection seen. Unsuccessful ability to deliver distal stenting to the distal in-stent restenosis in the bare metal stent in the distal right coronary artery into the posterior descending artery with balloon angioplasty and residual stenosis approximately 40% to 45%. OVERALL ASSESSMENT: At this point in time, dual antiplatelet therapy will be pursued with switching to Brilinta as well as continued aggressive antihyperlipidemic medicine with 80 mg of atorvastatin. Discussion will be made as to considering a repeat attempt at the distal RCA into PDA in the future ; however, given the dye load and the 2 procedures during this hospitalization, I would try to get the patient out further before pursuing this. I will discuss this with her primary corn breeder in [place] as well and also discuss this with our interventional colleagues at [facility]. Ideally , a femoral artery approach might lead to improved stability and perhaps event with larger size guide catheters; however, she is significantly obese with a large pannus that makes this a somewhat troublesome approach. [id number]/[facility] #: [id number] TASH
[2018-05-25] MEDS: Atorvastatin* 80 MG TAB PO SCH (18:46)
[2018-05-25] MEDS: Lisinopril TAB* 10 MG PO SCH (20:31)
[2018-05-26] MEDS: Levothyroxine TAB* 100 MCG TAB PO SCH (05:22)
[2018-05-26] MEDS: CMCS: Pantoprazole TAB (NF) 40 MG TAB PO SCH (05:22)
[2018-05-26] MEDS: Insulin LISPRO* 1 UNITS UNIT SUBCUT SCH (09:05)
[2018-05-26] MEDS: Metoprolol Succinate XL TAB* 25 MG PO SCH (09:06)
[2018-05-26] MEDS: FLUoxetine CAP* 20 MG PO SCH (09:06)
[2018-05-26] MEDS: Gabapentin CAP(*) 300 MG PO SCH (09:06)
[2018-05-26] MEDS: Insulin GLARGINE(*) 1 UNITS UNIT SUBCUT SCH (09:06)
[2018-05-26] MEDS: Ticagrelor* 90 MG TAB PO SCH (09:07)
[2018-05-26] MEDS: Spironolactone TAB* 25 MG PO SCH (09:07)
[2018-05-26] MEDS: Aspirin 81 mg CHEW TAB* 81 MG TAB.CHEW PO SCH (09:07)
[2018-05-26] MEDS ORDERED: Furosemide TAB* 20 MG PO SCH (10:00)
[2018-05-26 11:28] VITALS: BP 113/40
== END 2018-05-26 13:15 | disposition home or self-care (01) | DRG 246 ==
LOC: ED 19:22 → MEDTELE 22:52 → ICU 05-21 12:28 → MEDTELE 05-23 10:26 → ICU 05-24 10:55 → MEDTELE 05-25 11:00
PROVIDERS: ADMIT Pediatrics; ATTEND Internal Medicine Geriatric Medicine
PROC: 02703ZZ Dilation of Coronary Artery, One Artery, Percutaneous Approach (ICD-10-PCS; 2018-05-21)
PROC: 027034Z Dilation of Coronary Artery, One Artery with Drug-eluting Intraluminal Device, Percutaneous Approach (ICD-10-PCS; 2018-05-21)
PROC: 4A023N7 Measurement of Cardiac Sampling and Pressure, Left Heart, Percutaneous Approach (ICD-10-PCS; 2018-05-21)
PROC: B2111ZZ Fluoroscopy of Multiple Coronary Arteries using Low Osmolar Contrast (ICD-10-PCS; 2018-05-21)
PROC: 027034Z Dilation of Coronary Artery, One Artery with Drug-eluting Intraluminal Device, Percutaneous Approach (ICD-10-PCS; principal; 2018-05-21 10:00)
DX: I21.A9 Other myocardial infarction type (principal); I50.21 Acute systolic (congestive) heart failure; C22.0 Liver cell carcinoma; K76.6 Portal hypertension; T82.855A Stenosis of coronary artery stent, initial encounter; I24.9 Acute ischemic heart disease, unspecified; E11.9 Type 2 diabetes mellitus without complications; I25.10 Atherosclerotic heart disease of native coronary artery without angina pectoris; E78.5 Hyperlipidemia, unspecified; I10 Essential (primary) hypertension; K74.60 Unspecified cirrhosis of liver; F32.9 Major depressive disorder, single episode, unspecified; E03.9 Hypothyroidism, unspecified; Z87.891 Personal history of nicotine dependence; G89.3 Neoplasm related pain (acute) (chronic); E89.0 Postprocedural hypothyroidism; E78.00 Pure hypercholesterolemia, unspecified; E11.36 Type 2 diabetes mellitus with diabetic cataract; Z83.3 Family history of diabetes mellitus; Z82.49 Family history of ischemic heart disease and other diseases of the circulatory system; I11.0 Hypertensive heart disease with heart failure; D69.6 Thrombocytopenia, unspecified; D64.9 Anemia, unspecified; K75.81 Nonalcoholic steatohepatitis (NASH); Z90.49 Acquired absence of other specified parts of digestive tract; Z95.5 Presence of coronary angioplasty implant and graft; K21.9 Gastro-esophageal reflux disease without esophagitis; I25.5 Ischemic cardiomyopathy; I44.7 Left bundle-branch block, unspecified
CPT/HCPCS: 36415; 71045; 80048; 80053; 80061; 83605; 83880; 84484; 85025; 85027; 85060; 85347; 85652; 85730; 86140; 87641; 93005; 93306; 93308; 93454; 99284; A9270-GY; C1725; C1769; C1876; C1887; C8924; C8929; C9600-LD; C9600-RC; J0583; J1644; J1940; J2250; J3010